=== PATIENT | female | born 1980 | race Caucasian/White ===

== ENCOUNTER → 2019-01-25 14:29 | Outpatient (CLI) | payer OTHER, SELFPAY ==
[2019-01-25 11:18] VITALS: BMI 32.4
== END ==
PROVIDERS: Referring Provider Physician Assistant Medical; Visit Provider Physician Assistant Medical
DX: J02.9 Acute pharyngitis, unspecified (principal)
CPT/HCPCS: 87081

== ENCOUNTER 2021-11-08 16:26 | Outpatient (CLI) | payer OTHER, SELFPAY ==
[2021-11-12 14:15] LABS: HPV APTIMA, High Risk Negative (Negative)
== END 2021-11-08 23:59 | disposition home or self-care (01) ==
LOC: LABSPEC 16:27
PROVIDERS: Referring Provider Nurse Practitioner Women's Health; Visit Provider Nurse Practitioner Women's Health
DX: Z12.4 Encounter for screening for malignant neoplasm of cervix (principal)
CPT/HCPCS: 87624; 88175; G0145

== ENCOUNTER 2021-12-06 08:18 | Outpatient (CLI) | payer OTHER, SELFPAY ==
--- NOTE | 2021-12-06 08:22 | BI_ITS ---
MAMMOGRAPHY - BILATERAL SCREENING REASON FOR EXAM: Female, 41 years old. Routine annual screening examination. PERTINENT HISTORY: Non-contributory. TECHNIQUE: Digital bilateral breast marylu (3D mammographic acquisition) in the CC and MLO projections. 2-D mediolateral oblique (MLO) and craniocaudad (CC) views of both breasts were obtained. CAD: Full Field Digital Mammography with Computer Added Detection was performed. COMPARISON: None. Baseline examination. FINDINGS: Breast Composition: The breasts are extremely dense, which lowers the sensitivity of mammography. There are no dominant masses or suspicious calcifications. No other significant abnormalities are identified. BI/SCRN MAMM (CAD)W/MARYLU BILAT IMPRESSION: Negative screening mammogram. Yearly followup mammogram recommended. (A) ASSESSMENT CATEGORY: BIRADS Category 1: Negative. A letter regarding these results will be sent to the patient by the facility within 30 days. Approximately 10% of breast cancers are not detected by mammography. A normal mammogram should not delay biopsy of a clinically suspicious abnormality. [id number] Electronically Signed: Tevin Vazquez MD at 9:11 EST ,
== END 2021-12-06 23:59 | disposition home or self-care (01) ==
LOC: OPBI 08:20
PROVIDERS: Visit Provider Nurse Practitioner Women's Health
DX: Z12.31 Encounter for screening mammogram for malignant neoplasm of breast (principal)
CPT/HCPCS: 77063; 77067

== ENCOUNTER 2022-10-04 10:08 | Emergency (ER) | payer OTHER, SELFPAY ==
[2022-10-04 10:09] VITALS: BP 132/87; PULSE 62; RESP 14; TEMP 36.4; O2SAT 96; BMI 24.3
--- NOTE | 2022-10-04 11:07 | EDS_ITS ---
HPI History of Present Illness Chief Complaint: Lower Extremity Injury Narrative Narrative: 42-year-old female presenting with right foot pain. She states she broke her foot while she was in [place] on vacation on Monday. She states she was told she need surgery for her Smith fracture within the first 48 hours. This was offered to her and she declined. She states she wanted to come back home first before having surgery. She states he tried to call orthopedics and cannot get follow-up until next week. She states he is not had any narcotic pain medication. Patient denies new injury. She is in a splint. She is ambulatory with crutches. Patient states that while she is sitting or laying down her foot does not hurt very much. It typically hurts at the end of the day after she has been upright for a while. [facility] Medical History (Updated 10/04/22 @ 12:02 by Avelina Jefferson) Foot fracture, right Scabies Home Medications multivitamin 1 tab PO DAILY 11/08/21 [History Last Taken Unknown] Allergy/AdvReac Type Severity Reaction Status Date / Time venom-honey bee Allergy Anaphylaxis Verified 10/04/22 10:11 [bee venom (honey bee)] Family History Grandmother Ovarian cancer Grandfather Lung cancer Mother Hypertension Father Heart disease Social History Smoking Status: Never smoker alcohol intake: current details: occasionally substance use type: does not use caffeine: Yes what type of physical activity do you participate in: other details: crossfit frequency: 3-4 times per week seatbelt use: always do you feel safe at home: Yes additional social history: - Louie ROS ROS ED Constitutional Constitutional ED: Denies chills, fever(s) or sweats Eyes Eyes: Denies blurry vision or change in vision ENT ENT ED: Denies ear pain or sore throat Cardiovascular Cardiovascular: Denies chest pain, palpitations or racing heartbeat Respiratory/Chest Respiratory/Chest: Denies cough, dyspnea or sputum Gastrointestinal Gastrointestinal: Denies abdominal pain, constipation, diarrhea, nausea or vomiting Genitourinary Genitourinary ED: Denies dysuria, hematuria or urinary frequency Musculoskeletal Musculoskeletal: Reports other Details: Right foot pain ; Denies arthralgias, myalgias or neck pain Integumentary Denies abscess, Abrasions or rash Neurologic Neurologic: Denies headache(s), paresthesias or weakness Psychiatric Psychiatric: Denies anxiety, depression, suicidal ideation or suicidal thoughts Endocrine Endocrinology: Denies polydipsia or polyuria EXAM Physical Exam Const Vital Signs: 10/04/22 10:09 10/04/22 12:09 Temperature 97.5 F L Temperature Source Temporal Pulse Rate 62 62 Respiratory Rate 14 15 Blood Pressure 132/87 H 134/77 H Blood Pressure Mean 102 Pulse Ox 96 97 Oxygen Delivery Method Room Air Positive well nourished HEENT Reports moist mucous membranes Eyes PERRL Resp normal respiratory effort Cardio regular rate and regular rhythm Extremity Extremity Narrative: Right foot is in a splint. Brisk cap refill to all 5 toes. MDM MDM MDM Narrative Medical decision making narrative: Patient seen and evaluated on arrival. She declines analgesia. She states currently she is comfortable. Since I do not have an image I will need to Xray her foot. I will talk to podiatry. X-ray of the right foot obtained and shows a displaced base of the fifth metatarsal fracture on the right foot. This is on my interpretation. I did speak with Dr. Terrazas. He recommended follow-up tomorrow in office. Patient is already in a splint. She declines analgesia. Impression: 1. Right fifth metatarsal fracture Lab Data Attestation: I reviewed the patient's lab results. Radiography Diagnostic Testing: Clinical Impression(s) from Imaging Studies Foot X-Ray 10/04/22 11:35 IMPRESSION: 1. Acute mildly displaced fracture at the base of the fifth metatarsal bone Electronically Signed: Johnny Snider MD at 12:34 EST Reading Location ID and State: [address] [place] [address] , Service support , Discharge Plan Triage Chief Complaint: Lower Extremity Injury ED Provider: Jevon Fitch Dx/Rx/DC Orders Instructions: ED Fracture, Foot Prescriptions: No Action multivitamin Tablet 1 tab PO DAILY Primary Care Provider: Care Physician,No Primary Referrals: Clemente Terrazas DPM [Med Staff - Active Staff] - 1 Day Care Physician,No Primary [Primary Care Provider] - Disposition Disposition: Home, Self Care Discharge Date/Time: 10/04/22 12:09
--- NOTE | 2022-10-04 11:35 | RAD_ITS ---
STUDY: X-RAY - RIGHT FOOT CLINICAL: Female, 42 years old. fx to foot last Monday on vacation, pain TECHNIQUE: 3 view(s) of the foot. COMPARISON: None. FINDINGS: An acute horizontal corner fracture is present at the base and lateral side of the fifth metatarsal bone with mild displacement. No additional acute fractures are present. Normal talus, calcaneus, and tarsal bones. Normal visualized subtalar, talonavicular, calcaneocuboid, tarsal and tarsometatarsal articulations. Normal metatarsi. Normal metatarsophalangeal joint of the great toe. Normal tibial and fibular sesamoid bones. Normal interphalangeal joint of the great toe. Normal phalanges of the great toe. Normal second through fifth metatarsophalangeal joints. Normal interphalangeal joints and phalanges of the lesser toes. The soft tissue structures are unremarkable. RAD/Foot min 3 Views IMPRESSION: 1. Acute mildly displaced fracture at the base of the fifth metatarsal bone Electronically Signed: Johnny Snider MD at 12:34 EST ,
[2022-10-04 12:09] VITALS: BP 134/77; PULSE 62; RESP 15; O2SAT 97
== END 2022-10-04 12:09 | disposition home or self-care (01) ==
PROVIDERS: Emergency Provider Student in an Organized Health Care Education/Training Program; Visit Provider Student in an Organized Health Care Education/Training Program
DX: S92.351A Displaced fracture of fifth metatarsal bone, right foot, initial encounter for closed fracture (principal); X58.XXXA Exposure to other specified factors, initial encounter
CPT/HCPCS: 73630; 99282

== ENCOUNTER → 2022-10-07 | Outpatient (CLI) | payer OTHER, SELFPAY ==
[2022-10-07 17:31] LABS: Absolute Lymphocyte Count 2.31 X10^3/uL (0.83-4.51); Absolute Neutrophil Count 2.9 X10^3/uL (2.0-7.7); Basophil# 0.04 X10^3/uL; Basophil% 0.7 % (0-1); Eosinophil# 0.15 X10^3/uL; Eosinophils% 2.6 % (0-5); Hematocrit 41.1 % (37-47); Hemoglobin 14.3 g/dL (12.0-15.0); Lymphocyte # 2.31 X10^3/ul (0.83-4.51); Lymphocyte % 39.8 % (19-41); Mean Corp Hgb Conc 34.8 g/dL (32-36); Mean Corpuscular Hgb 30.4 pg (27.0-32.0); Mean Corpuscular Volume 87.3 fL (81-99); Mean Platelet Vol. 10.8 fl (6.2-12.0); Monocyte# 0.44 X10^3/uL; Monocyte% 7.6 % (0-10); NRBC Flagged by Analyzer 0 % (0-5); Neutrophil # 2.85 X10^3/uL (2.7-7.7); Neutrophil % 49.1 % (47-70); Platelet Count 282 K/mm3 (150-450); RBC Distribution Width CV 11.9 % (11.6-14.6); RBC Distribution Width SD 37.6 fl (35.1-43.9); Red Blood Count 4.71 M/mm3 (4.2-5.4); White Blood Count 5.8 K/mm3 (4.4-11.0)
[2022-10-07 18:10] LABS: ALB/GLOB Ratio 1.3 RATIO (0.9-2.4); AST(SGOT) 8 U/L (15-37); Alanine Aminotransfer ALT/SGPT 22 U/L (13-56); Albumin, Serum 3.9 g/dL (3.2-5.0); Alkaline Phosphatase 42 U/L (45-117); Anion Gap 8 (5-15); BUN 15 mg/dL (7-18); BUN/Creat Ratio 18.6 RATIO (10-20); Chloride 106 mmol/L (98-107); Creatinine, Serum 0.81 mg/dL (0.55-1.02); EST Glomerular Filtration Rate 83 mL/min (>60); Est Glom Filt Rate - Afr Amer 100 mL/min (>60); Glucose 99 mg/dL (74-106); Potassium 3.7 mmol/L (3.5-5.1); Protein, Total 6.9 g/dL (6.4-8.2); Sodium Level 141 mmol/L (136-145)
== END | disposition home or self-care (01) ==
LOC: MFPLAB 16:24
PROVIDERS: Visit Provider Family Medicine
DX: Z01.818 Encounter for other preprocedural examination (principal)
CPT/HCPCS: 36415; 80053; 85025

== ENCOUNTER 2022-10-14 11:16 | Day surgery (SDC) | payer OTHER, SELFPAY ==
[2022-10-14] VITALS (8 sets, daily range): BP systolic 115–131; BP diastolic 65–79; PULSE 43–75; RESP 16–18; TEMP 36.6–37.1; O2SAT 96–100; BMI 27.3
[2022-10-14 12:47] LABS: Internal QC Validated? YES +Cl - CLEAR BKGD; Pregnancy, Urine Negative Negative
[2022-10-14] MEDS: Lactated Ringers 1,000 ML 15 ML IV ×2 (12:48→13:56)
--- NOTE | 2022-10-14 13:20 | RAD_ITS ---
INDICATION: FX EXAMINATION/TECHNIQUE: X-RAY - RIGHT XR Foot 2 Views 5 VIEWS COMPARISON: None. FINDINGS: Postsurgical changes status post open reduction internal fixation of fracture of the fifth metatarsal with indwelling partially threaded screw. Fracture fragments are in anatomic alignment and position . RAD/Foot 2 Views IMPRESSION: . Status post ORIF fifth metatarsal fracture Electronically Signed: Clemente Muro MD at 19:38 EST ,
--- NOTE | 2022-10-14 13:49 | DCINST_ITS ---
Discharge Instructions Diet Discharge Diet: Light diet - advance as tolerated Activity Discharge Activity: May Not Drive, Use Walker and Use Crutches Weight Bearing Status: No weight bearing (No weightbearing right foot.) Keep extremity elevated above heart level: Right Leg (Keep right foot elevated for at least 50 minutes of every hour.) Dressing / Incision Call your doctor if your incision/area has: Continuous Slow Oozing, Increased Redness and Foul Smelling Discharge Call your doctor if you observe: Fever of 101 or Higher, Shortness of breath, Chest pain, Increased palpitations (irregular heartbeat), Calf discomfort and Uncontrolled pain Change Dressing in: do not change dressing Remove Dressing in: do not remove dressing Cleanse incision/area with: Keep Dressing Clean & Dry Follow Up Care Please Follow Up With: Clemente Terrazas DPM When: in 1 week, sooner if needed. Test Results: Test results from this visit will be discussed in further detail at your follow- up appointment, if applicable. Discharge Plan Admission Attending Provider: Clemente Terrazas Primary Care Provider: Care Physician,Sue Primary Discharge Orders/Prescriptions Prescriptions: New Eliquis 2.5 mg tablet 2.5 mg PO Q12H Qty: 20 0RF hydrocodone-acetaminophen 5-325 mg tablet 1 - 2 tab PO Q6H PRN (Reason: pain) 4 Days Qty: 24 0RF No Action multivitamin Tablet 1 tab PO DAILY Referrals / Follow Up: Care Physician,Sue Primary [Primary Care Provider] - Disposition Disposition (needs filled in before D/C Order can be placed): Home, Self Care
--- NOTE | 2022-10-14 13:50 | PCM.OPRPT ---
Report of Operation Date of Procedure: 10/14/22 Pre-Operative Diagnosis: Right 5th metatarsal fracture. Post-Operative Diagnosis: Same Surgery/Procedure Performed:: ORIF right 5th metatarsal fracture Surgeon: Clemente Terrazas layer out plate glass: Stefani Type of Anesthesia: General and Local Specimen's removed: None Estimated Blood Loss (mL): 5mL Description of Procedure: Indications: This is a year old female with right 5th metatarsal base fracture from playing basketball. We discussed the options - nonsurgical vs surgical. She elected to proceed with 5th metatarsal open reduction internal fixation procedure. Reviewed the procedure, possible benefits vs risks, goals, expectations, and estimated healing time. She expressed understanding and agreement. No guarantees were given nor implied. No warranties were given.?She freely signed the consent forms and elected to proceed forward with the procedure. Operative procedure: She was brought back into the operating room and was placed on the operating room table in the supine position. A timeout was performed and the patient was properly identified and the surgical plan was confirmed. The patient did receive 2 g of IV Ancef for antibiotic prophylaxis. The patient received anesthesia per the anesthesia team. A well padded pneumatic tourniquet was applied around the right ankle but was not inflated for this procedure. A total of 10mL of 0.25% Bupivacaine with 1:200,000 epi was given as a local nerve block around the right lateral foot at level of the 5th metatarsal base after the overlying skin was cleansed with 70% Isopropyl alcohol. The right foot was scrubbed, prepped and draped in the usual aseptic fashion. Further attention was directed to the right foot. A linear skin incision was made overlying the 5th metatarsal base at level of the dorsal lateral foot using a 15 blade. Carefule dissection was completed down to the fracture. It was visualized and was noted to have malalignment. The fracture was reduced manually into normal position. A kwire was placed across the fracture and down shaft of the 5th metatarsal. A 4.0mm Arthrex cannulated screw was placed across the fracture to obtain rigid open reduction internal fixation. The kwire was removed. The fracture was in good position and alignment, there was excellent bone to bone contact across the fracture site. The screw had good bite and was very stable. The fracture site was stable and in good position.The site was flushed out with copious amounts of normal saline solution. The subcutaneous tissue was reapproximated using 3-0 Vicryl and the skin was reapproximated using 4-0 Monocryl. As already noted, the tourniquet was not deflated. All toes on the foot had normal temperature gradient and CFT < 2 seconds to all toes. Hemostasis was achieved with no significant bleeding noted.? Also of note all vital structures including all vital neurovascular and soft tissue structures were properly identified, retracted, and protected as necessary during the procedures. Also of noted intra operative fluoroscopy was used as needed to confirm rigid open reduction internal fixation with screw intact and in good position. At the end, a dressing was applied which consisted of steristrips across the incision site after applying Cavilon, then Betadine soaked adaptic, 4x4 gauze, Kerlix, and olu bandage with a well padded below posterior splint with heel offloaded was applied being sure to apply it not too tight. ? The patient tolerated the above operative procedure well at the anesthesia well with no complication. The patient was transported to the recovery room with vital signs stable and in good condition. Post operative orders were placed. Post operative instructions were reviewed and dispensed verbal and written. No weightbearing right foot, keep right foot elevated for at least 50 minutes of every hour, keep dressing clean, dry and intact. Prescription for [place] 5/325mg 1-2 tabs PO q 6 hours prn pain was prescribed. Also Apixaban 2.5mg PO BID to help prevent a blood clot. She is to follow up with me next next week, sooner if needed. Also post op foot xrays (right) were obtained and reviewed in the PACU. Findings show proper alignment of the 5th metatarsal with intact screw. No complications seen. Grafts/Implants Used: 1 x Arthrex cannulated 4.0mm screw Complications None
[2022-10-14] MEDS: Cefazolin 2 GM in 0.9% Normal Saline 100 ML IV (14:00)
--- NOTE | 2022-10-14 15:10 | RAD_ITS ---
INDICATION: post op EXAMINATION/TECHNIQUE: X-RAY - RIGHT XR Foot Min 3 Views 3 VIEWS COMPARISON: None. FINDINGS: SOFT TISSUES: No soft tissue swelling or gas. No radiopaque foreign body. BONES/JOINTS: Postsurgical changes status post open reduction internal fixation of fifth metatarsal fracture with indwelling orthopedic hardware. Fracture fragments in anatomic alignment and position . RAD/Foot min 3 Views IMPRESSION: Status post ORIF fifth metatarsal fracture Electronically Signed: Clemente Muro MD at 19:43 EST ,
== END 2022-10-14 17:23 | disposition home or self-care (01) ==
LOC: SDC 11:17 → AC 11:19
PROVIDERS: Anesthesiology; Visit Provider Podiatrist
PROC: (CPT 28485; principal; 2022-10-14 13:15)
DX: S92.351A Displaced fracture of fifth metatarsal bone, right foot, initial encounter for closed fracture (principal); X58.XXXA Exposure to other specified factors, initial encounter; Y93.67 Activity, basketball
CPT/HCPCS: 28485; 01480; 73620; 73630; 76000; 81025; C1713; J7120; J2405

== ENCOUNTER 2023-01-10 08:30 | Outpatient (RCR) | payer OTHER, SELFPAY ==
--- NOTE | 2022-12-12 09:19 | HP.PTEVAL_ITS ---
Patient's Visit Information JENNIFER CONNOR is a 42 year old F referred to Physical Therapy by Dr. Clemente Terrazas DPM with a diagnosis of 5th Metatarsal Fracture ORIF. Date of Evaluation: 12/12/22 Physical Therapist: Tram Johnson DPT - Visit Plan Frequency: 2x /Week Duration: 4 Weeks Plan: Transition to shoe- focus on LE ROM and strength- ambulation, proprioception and functional mobility. HEP Given IE: Ankle ROM, Gastroc Stretch with Towel, HR/TR, Weight Shift - Subjective Patient reports broke her right 5th metatarsal playing basketball. Dr. Terrazas did surgery Oct 14, 2022- she has been in a cast then transitions to a CAM walker. She is walking at home with a sock but its slow and hard. She has little to no pain. She has pain if she has been on it its more sharp pains then it goes away- right on the incision. Worst: 2/10 Best: 0/10. She is more sedentary now. 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 Goes to the gym daily and plays outside with her kids (11 and almost 9). Goals: get back to moving. Sleep: not disturbed. No N/T in the toes. PMHX/Meds: no changes since surgery. - Objective Posture: FH, RS- can correct but does not maintain. Gait: antalgic- decreased stance on the right LE with poor heel/toe pattern. HR/TR: able with weight shift to the left. SLS: weight shift but does not take hands off wall due to imbalance. Observation: incision healing well no s/s of infection. Edema: none noted. ROM: DF: 10 degrees with over pressure, PF: 50 degrees, Inver: 30 degrees Ever: 20 degrees. Strength: Knee: 4+/5, Ankle: 4+/5 - Balance/Special Test Scores Lower Extremity Functional Score: 42 - Goals Goal 1:: Patient will be I with HEP and progression Goal Time Frame: 4-6 Weeks Goal 2:: Patient will SLS for 30 sec without LOB Goal Time Frame: 4-6 Weeks Goal 3:: Patient will ambulate >300 feet with a normalized gait pattern Goal Time Frame: 4-6 Weeks Goal 4:: Patient will report 80% improvement Goal Time Frame: 4-6 Weeks - Rehabilitation Potential Physical Therapy Diagnosis: Patient presents with hypomobility- she has decreased LE ROM, strength, proprioception, flex and muscular endurance leading to abnormal gait pattern s/p ORIF of the 5th met. Rehabilitation Potential: Good - Anticipated Interventions Patient/Client Instruction: Educate patient on: Benefits of Fitness Program Therapeutic Exercise to Include: Strength training, Endurance training, Balance training, Coordination, Agility training, Body mechanics, Postural training, Flexibilty training, Gait and locomotor training, Neuromotor development, Passive ROM, Active ROM, Dynamic Lumbar Stabilization, Scapular Strength/Stabilization For the Purpose of:: To improve muscle performance and motor function TENS: Yes Cryotherapy (ice pack, ice massage): Yes Thermo therapy (hot pack): Yes Ultrasound (thermal/non thermal): No Thank you for the opportunity to evaluate your patient. For Medicare and Medicare HMO plans, please review the plan of care and approve it. It will need to be FAXED BACK to us at [phone] for Medicare purposes. For Medicare only, by signing this I certify the plan of care. Please let me know if there are questions or concerns regarding this plan of care. Physician Julio epstein: Date:
--- NOTE | 2023-01-10 08:51 | HP.PTDCSUM ---
It has been my pleasure to treat JENNIFER CONNOR referred by Dr. Clemente Terrazas DPM, with the diagnosis of 5th Metatarsal Fracture ORIF for a total of 9 visit(s). Discharge Date: Please see the following information for a summary of their discharge status. Subjective: Patient reports that her foot is doing a lot better. Stairs are easier and just walking is easier. She just wants to be able to get back to the gym and running but MD says wait on that portion. She has intermittent dull ache if she has been on her feet more during the day but nothing major. She feels that her foot is 60-65%. She feels that if she gets into the gym she feels confident that she can continue indep. % Improvement: 65 Objective/Function: Posture: good throughout Gait: no deviation noted in regular shoes HR/TR: able without UE A no weight shift SLS: 10 sec without loss of balance Edema: none noted. ROM: DF: 15 degrees, PF: 60 degrees, Inver: 30 degrees Ever: 20 degrees. Strength: Knee: 5/5, Ankle: 5/5, Stairs: asc/desc 8' recip without HR and no deviation noted. Flex: Gastroc: mild Soleus: mild Goal 1:: Patient will be I with HEP and progression Goal Progress: Goal Met Goal 2:: Patient will SLS for 30 sec without LOB Goal Progress: Goal Met Goal 3:: Patient will ambulate >300 feet with a normalized gait pattern Goal Progress: Goal Met Goal 4:: Patient will report 80% improvement Goal Progress: Progressing Plan: 01/10/23: Discharge to home exercise program- plans to join [employer] through [email or web address]. Transition to shoe- focus on LE ROM and strength- ambulation, proprioception and functional mobility If there are questions or concerns regarding this patient's physical therapy, please feel free to call me at [phone]. Thank you for the referral of this patient. Sincerely, Tram Johnson DPT Balance/Gait/Functional tests - Balance/Special Test Scores Lower Extremity Functional Score: 55
== END 2023-01-10 15:26 | disposition home or self-care (01) ==
LOC: PT 08:30
PROVIDERS: Referring Provider Podiatrist; Visit Provider Podiatrist
DX: Z47.89 Encounter for other orthopedic aftercare (principal)
CPT/HCPCS: 97110; 97161; 97164

== ENCOUNTER 2024-03-21 12:11 | Emergency (ER) | payer OTHER, SELFPAY ==
[2024-03-21 12:11] VITALS: BP 142/90; PULSE 50; RESP 14; TEMP 36.1; O2SAT 98; BMI 29.4
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
[2024-03-21 14:11] VITALS: BP 125/83; PULSE 53; RESP 15; TEMP 36.4; O2SAT 99
== END 2024-03-21 14:17 | disposition home or self-care (01) ==
PROVIDERS: Emergency Provider Emergency Medicine; Visit Provider Emergency Medicine
DX: S16.1XXA Strain of muscle, fascia and tendon at neck level, initial encounter (principal); V43.94XA Unspecified car occupant injured in collision with van in traffic accident, initial encounter
CPT/HCPCS: 70450; 99282

== ENCOUNTER → 2025-07-08 | Outpatient (CLI) | payer OTHER, SELFPAY ==
--- NOTE | 2025-07-08 13:59 | STE_ITS ---
Reason For Study Reason For Study: Chest Pain Stress Results Protocol: Stress Echocardiogram-James Protocol Maximum Predicted HR: 176 bpm Target HR: 150 bpm % Maximum Predicted HR: 96 % DurationHeart Rate Stage (mm:ss) (bpm) BP Comment Baseline 48 110/76Patient denies chest pain Stage 1 3:00 90 120/84Patient denies chest pain Stage 2 3:00 122 130/82Patient denies chest pain Stage 3 3:00 144 136/84Mild dyspnea. Patient denies chest pain. Stage 4 2:00 169 140/90Mild to moderate dyspnea. Patient denies chest pain. Recovery 77 120/82Patient denies chest pain. Stress Duration: 11:00 mm:ss Maximum Stress HR: 169 bpm Baseline Echocardiogram Findings Stress Echo Wall motion Data Resting WM Intermediate WM Stress WM ECHO/Stress Test Echo w/o Contrast Interpretation Summary Exercise stress echocardiogram. 62-xzro-hfr-year-old lady with a history of abnormal EKG and family history of coronary disease. Stress electrocardiogram. The resting EKG demonstrates sinus bradycardia with a rate of 49 bpm resting bl ood pressure is 110/76 mmHg. The patient exercised according to regular James protocol for total duration of 11 minutes completing 2 minutes into stage IV of the James protocol the maximum heart rate attained was 169 bpm which was 96% of max impacted heart rate maximum workload was 13.7 metabolic equivalents. At rest there were no ST or T wave changes noted perdomo ggest ischemia and at peak exercise nonspecific ST changes were noted which did not meet the criteria for ischemia. No clinical angina was noted patient however did experience some mild to moderate dyspnea. The peak blood pressure w as noted to be 140/90 mmHg. This was a normal blood pressure response to exercise. Stress echocardiogram. The resting echocardiogram demonstrated preserved ejecti on fraction of 55 to 60%. At peak exercise there was thickening of all juan reduction of the ventricular cavity size and peaking of ejection fraction of 70%. No wall motion abnormalities were noted. Conclusion: Exercise stress test with no definitive EKG criteria for ischemia at a high wor kload. Good functional Capacity Stress echocardiogram demonstrating no wall motion abnormalities present. Ordering Physician: Troy Andrade Referring Physician: Troy Andrade Performed By: Dori Krueger RDCS, RVT
== END | disposition home or self-care (01) ==
LOC: CVS 13:41
PROVIDERS: PCP Pediatrics; Referring Provider Internal Medicine Cardiovascular Disease; Visit Provider Internal Medicine Cardiovascular Disease
DX: R07.9 Chest pain, unspecified (principal)
CPT/HCPCS: 93017; 93350

== ENCOUNTER → 2025-07-22 | Outpatient (CLI) | payer OTHER, SELFPAY ==
--- NOTE | 2025-07-22 13:50 | BI_ITS ---
EXAM: DIAG MAMM W/CAD, BILAT 07/22/2025 CLINICAL HISTORY: F, Age 45 y/o , SCREEN FOR BREAST CANCER one-week history of left breast lump. TECHNIQUE: Procedure Code: [id number] Modality: MG Procedure: DIAG MAMM W/CAD, BILAT. COMPARISON: Prior exam(s) dated December 06, 2021.. FINDINGS: TISSUE DENSITY: The breasts are extremely dense, which lowers the sensitivity of mammography. Bilateral Breast Mammographic Findings: The palpable lump corresponds to a 4.3 cm x 3.7 cm well-defined nodule in the deep upper lateral aspect of the left breast. Targeted sonographic correlation recommended. No suspicious masses, areas of developing architectural distortion, or suspicious calcifications. There has been no significant interval change. BI/DIAG MAMM W/CAD, BILAT IMPRESSION: The palpable lump corresponds to a 4.3 cm x 3.7 cm well-defined nodule in the d eep upper lateral aspect of the left breast. Targeted sonographic correlation is recommended. OVERALL FINAL ASSESSMENT BI-RADS 0: INCOMPLETE - NEED ADDITIONAL IMAGING EVALUATION. RECOMMENDATION: Ultrasound Recommended Additional Recommendation none A letter with findings and recommendations will be mailed to the patient. Reading Location: [place] [id number]
--- NOTE | 2025-07-22 13:50 | US_ITS ---
PROCEDURE: BREAST LIMITED UNILATERAL 07/22/2025 REASON FOR EXAM: F, Age 45 y/o , BREAST LUMP COMPARISON: Prior mammogram done earlier in the day.. TECHNIQUE: Procedure Code: USBRSTLIMIT Modality: US Procedure: BREAST LIMITED UNILATERAL. Imaging of the left breast was obtained. FINDINGS: There is a 2.9 cm x 2.8 cm 2.5 cm cyst at the 3 o'clock position of the breast at 3 cm from the nipple. Several cysts are also seen adjacent to this. There is a 2.2 cm 2.2 cm 1.8 cm cyst at the 12 o'clock position of the breast at 2 cm from the nipple. There is a 1 cm x 0.9 cm x 0.5 cm cyst at the 10 o'clock position of the breast at 2 cm from the nipple as well as a 7 mm x 6 mm x 6 mm cyst at the 6 o'clock position of the breast at 4 cm from the nipple. US/Breast Limited Unilateral IMPRESSION: The palpable lump corresponds to a dominant 2.9 cm 2.8 cm 2.5 cm cyst at the 3 o'clock position of the breast at 3 cm from the nipple. There are 3 other adjacent cysts as described. BI-RADS 2: BENIGN RECOMMENDATION: Routine annual follow-up in 1 Year Reading Location: [place] [id number]
== END | disposition home or self-care (01) ==
PROVIDERS: PCP Pediatrics; Referring Provider Nurse Practitioner Family; Visit Provider Nurse Practitioner Family
DX: N63.20 Unspecified lump in the left breast, unspecified quadrant (principal)
CPT/HCPCS: 76642; 77062; 77066; G0279

== ENCOUNTER → 2025-08-19 | Outpatient (CLI) | payer OTHER, SELFPAY ==
--- NOTE | 2025-08-19 15:24 | US_ITS ---
PROCEDURE: PELVIC W/ TRANSVAGINAL REASON FOR EXAM: ENLARGED UTERUS TECHNIQUE: Procedure Code: [id number] Modality: US Procedure: PELVIC W/ TRANSVAGINAL COMPARISON: None FINDINGS: LMP: May 16, 2025. Measurements: Uterus: 10.2 cm x 5.2 cm x 4.3 cm with a volume of 121.4 mL Endometrial Thickness: 11 mm. It is hyperechoic. Right Ovary: 2.3 cm x 1.5 cm x 1.5 cm with a volume of 2.6 mL. Left Ovary: 3.4 cm x 3.6 cm x 2 point 7 cm with a volume of 17.6 mL. TRANSABDOMINAL: Uterus: Mildly enlarged uterus. There are multiple small nabothian cysts. Endometrium: The endometrium measures 11 mm. It is hyperechoic. Right ovary: Normal size and echotexture. Left ovary: There is a 2.4 cm 2.2 cm 2.3 cm simple cyst in the left ovary. Other: No large pelvic mass identified. Transvaginal sonography was performed to better visualize the endometrium. TRANSVAGINAL: Uterus: Anteverted. Mildly enlarged. Endometrium: Normal echotexture. Right ovary: Normal size and echotexture. Left ovary: 2.4 cm 2.2 cm 2.3 cm simple cyst in the left ovary. Other adnexal findings: None. Cul-de-sac: No free intraperitoneal fluid identified. Tenderness: No tenderness US/Pelvic w/ Transvaginal IMPRESSION: Mild enlargement of the uterus. 2.4 cm 2.2 cm 2.3 cm left ovarian cyst. Reading Location: [id number]
--- OUTSIDE RECORDS SUMMARY | 2025-08-19 19:29 | XMS RPT_ITS | CCD ---
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 cavity size and peaking of ejection fraction of 70%. No wall motion abnormalities were noted. Conclusion: Exercise stress test with no definitive EKG criteria for ischemia at a high workload. Good functional Capacity Stress echocardiogram demonstrating no wall motion abnormalities present. Ordering Physician: Troy Andrade Referring Physician: Troy Andrade Performed By: Dori Krueger, HARI, RVT 07/08/251856 Date Catarino Acosta MD CC: Dr. Troy Andrade MD; Jannie Duval MD Date Dictated: 07/08/25 1400 Date Transcribed: 07/08/251856 Portfolio Mgr: Signed Normal [facility] Renal function 2000 panelon 06-18-2025 Albumin [Mass/Vol] 4.2 g/dL Normal 3.9-4.9 [facility] Comment on above: Order Comment: Speci men Type: BLOOD SPECIMEN Ordering Facility: [facility] Address: [address] [place] [address] Performed By: #### 2 4362-6 #### [facility] CLIA [id number] [address] [place] [address] [place] Anion gap [Moles/Vol] 13 mmol/L Normal 8-15 [facility] Comment on above: Order Comment: Speci men Type: BLOOD SPECIMEN Ordering Facility: [facility] Address: [address] [place] [address] Performed By: #### 2 4362-6 #### [facility] CLIA [id number] [address] [place] [address] [place] Calcium [Mass/Vol] 9.2 mg/dL Normal 8.5-10.2 [facility] Comment on above: Order Comment: Speci men Type: BLOOD SPECIMEN Ordering Facility: [facility] Address: [address] [place] [address] Performed By: #### 2 4362-6 #### [facility] CLIA [id number] [address] [place] [address] [place] Chloride [Moles/Vol] 102 mmol/L Normal 98-107 [facility] Comment on above: Order Comment: Speci men Type: BLOOD SPECIMEN Ordering Facility: [facility] Address: [address] [place] [address] Performed By: #### 2 4362-6 #### [facility] CLIA [id number] [address] [place] [address] [place] CO2 [Moles/Vol] 23 mmol/L Normal 22-30 [facility] Comment on above: Order Comment: Speci men Type: BLOOD SPECIMEN Ordering Facility: [facility] Address: [address] [place] [address] Performed By: #### 2 4362-6 #### [facility] CLIA [id number] [address] [place] [address] [place] Creatinine [Mass/Vol] 0.77 mg/dL Normal 0.58-0.96 [facility] Comment on above: Order Comment: Speci men Type: BLOOD SPECIMEN Ordering Facility: [facility] Address: [address] [place] [address] Performed By: #### 2 4362-6 #### [facility] CLIA [id number] [address] [place] [address] [place] eGFRcr SerPlBld CKD-EPI 2020 98 mL/min/1.73m??? Normal >=60 [facility] Comment on above: Order Comment: Speci men Type: BLOOD SPECIMEN Ordering Facility: [facility] Address: [address] [place] [address] Result Comment: Melissa mated Glomerular Filtration Rate (eGFR) is calculated using the 2020 CKD-EPI creatinine equation. This equation utilizes serum creatinine, sex, and age as parameters. The creatinine assay has traceable calibration to isotope dilution-mass spectrometry. Refer to KDIGO guidelines for clinical interpretation. In patients with unstable renal function, e.g. those with acute kidney injury, the eGFR may not accurately reflect actual GFR. Performed By: #### 2 4362-6 #### [facility] CLIA [id number] [address] [place] [address] [place] Glucose [Mass/Vol] 62 mg/dL Low 74-99 [facility] Comment on above: Order Comment: Speci men Type: BLOOD SPECIMEN Ordering Facility: [facility] Address: [address] [place] [address] Result Comment: The [place] Diabetes [employer] (ADA) provides guidance for cutoff values for fasting glucose and random glucose. The ADA defines fasting as no caloric intake for at least 8 hours. Fasting plasma glucose results between 100 to 125 mg/dL indicate increased risk for diabetes (prediabetes). Fasting plasma glucose results greater than or equal to 126 mg/dL meet the criteria for diagnosis of diabetes. In the absence of unequivocal hyperglycemia, results should be confirmed by repeat testing. In a patient with classic symptoms of hyperglycemia or hyperglycemic crisis, random plasma glucose results greater than or equal to 200 mg/dL meet the criteria for diagnosis of diabetes. Reference: Standards of Medical Care in Diabetes 2016, [place] [employer]. Diabetes Care. 2016.39(Suppl 1). Performed By: #### 2 4362-6 #### [facility] CLIA [id number] [address] [place] [address] [place] Phosphate [Mass/Vol] 3.6 mg/dL Normal 2.7-4.8 [facility] Comment on above: Order Comment: Speci men Type: BLOOD SPECIMEN Ordering Facility: [facility] Address: [address] [place] [address] Performed By: #### 2 4362-6 #### [facility] CLIA [id number] [address] [place] [address] [place] Potassium [Moles/Vol] 4.4 mmol/L Normal 3.7-5.1 [facility] Comment on above: Order Comment: Speci men Type: BLOOD SPECIMEN Ordering Facility: [facility] Address: [address] [place] [address] Performed By: #### 2 4362-6 #### [facility] CLIA [id number] [address] [place], [place] [address] [place] Sodium [Moles/Vol] 138 mmol/L Normal 136-144 [facility] Comment on above: Order Comment: Speci men Type: BLOOD SPECIMEN Ordering Facility: [facility] Address: [address] [place] [address] Performed By: #### 2 4362-6 #### [facility] CLIA [id number] [address] [place] [address] [place] Urea nitrogen [Mass/Vol] 13 mg/dL Normal 7-21 [facility] Comment on above: Order Comment: Speci men Type: BLOOD SPECIMEN Ordering Facility: [facility] Address: [address] [place] [address] Performed By: #### 2 4362-6 #### [facility] CLIA [id number] [address] [place] [address] [place] 25(OH)D3 [facility] 25-hydroxyvitamin D3 [Mass/Vol] 45.4 ng/mL Normal 31.0-80.0 [facility] Comment on above: Order Comment: Speci men Type: BLOOD SPECIMEN Ordering Facility: [facility] Address: [address] [place] [address] Result Comment: Clas sification of 25 [place] Vitamin D status: Deficiency/Insufficiency: < or = 30 ng/ml. Sufficiency/Optimal Levels: 31-80 ng/mL Toxicity: > 100 ng/mL. Test performed by chemiluminescent immunoassay. Performed By: #### 1 989-3 #### [facility] CLIA [id number] [address] [place], [place] [address] [place] CBC panel Auto (Bld)on 06-13 Erythrocyte distribution width (RBC) [Ratio] 11.5 % 11.5 - 15.0 % [facility] Hematocrit (Bld) [Volume fraction] 39.3 % 36.0 - 46.0 % [facility] Hemoglobin (Bld) [Mass/Vol] 13.8 g/dL 11.5 - 15.5 g/dL [facility] Interpretation and review of laboratory results Normal [facility] MCH (RBC) [Entitic mass] 30.1 pg 26.0 - 34.0 pg [facility] MCHC (RBC) [Mass/Vol] 35.1 g/dL 30.5 - 36.0 g/dL [facility] MCV (RBC) [Entitic vol] 85.8 fL 80.0 - 100.0 fL [facility] Nucleated RBC (Bld) [#/Vol] NINF [facility] Platelet mean volume (Bld) [Entitic vol] 11.2 fL 9.0 - 12.7 fL [facility] Platelets (Bld) [#/Vol] 250 10*3/uL [facility] RBC (Bld) [#/Vol] 4.58 10*6/uL 3.90 - 5.2 0 m/uL [facility] WBC (Bld) [#/Vol] 7.52 10*3/uL [facility] Erythrocyte distribution width (RBC) [Ratio] 11.5 % Normal 11.5-15.0 [facility] Comment on above: Order Comment: Speci men Type: BLOOD SPECIMEN Ordering Facility: [facility] Address: [address] [place] [address] Performed By: #### 5 8410-2 #### [facility] CLIA [id number] [address] [place] [address] [place] Hematocrit (Bld) [Volume fraction] 39.3 % Normal 36.0-46.0 [facility] Comment on above: Order Comment: Speci men Type: BLOOD SPECIMEN Ordering Facility: [facility] Address: [address] [place] [address] Performed By: #### 5 8410-2 #### [facility] CLIA [id number] [address] [place] [address] [place] Hemoglobin (Bld) [Mass/Vol] 13.8 g/dL Normal 11.5-15.5 [facility] Comment on above: Order Comment: Speci men Type: BLOOD SPECIMEN Ordering Facility: [facility] Address: [address] [place] [address] Performed By: #### 5 8410-2 #### [facility] CLIA [id number] [address] [place] [address] [place] MCH (RBC) [Entitic mass] 30.1 pg Normal 26.0-34.0 [facility] Comment on above: Order Comment: Speci men Type: BLOOD SPECIMEN Ordering Facility: [facility] Address: [address] [place] [address] Performed By: #### 5 8410-2 #### [facility] CLIA [id number] [address] [place] [address] [place] MCHC (RBC) [Mass/Vol] 35.1 g/dL Normal 30.5-36.0 [facility] Comment on above: Order Comment: Speci men Type: BLOOD SPECIMEN Ordering Facility: [facility] Address: [address] [place] [address] Performed By: #### 5 8410-2 #### [facility] CLIA [id number] [address] [place] [address] [place] MCV (RBC) [Entitic vol] 85.8 fL Normal 80.0-100.0 [facility] Comment on above: Order Comment: Speci men Type: BLOOD SPECIMEN Ordering Facility: [facility] Address: [address] [place] [address] Performed By: #### 5 8410-2 #### [facility] CLIA [id number] [address] [place] [address] [place] Nucleated RBC (Bld) [#/Vol] 10*3/uL Normal <0.01 [facility] Comment on above: Order Comment: Speci men Type: BLOOD SPECIMEN Ordering Facility: [facility] Address: [address] [place] [address] Performed By: #### 5 8410-2 #### [facility] CLIA [id number] [address] [place], [place] [address] [place] Platelet mean volume (Bld) [Entitic vol] 11.2 fL Normal 9.0-12.7 [facility] Comment on above: Order Comment: Speci men Type: BLOOD SPECIMEN Ordering Facility: [facility] Address: [address] [place] [address] Performed By: #### 5 8410-2 #### [facility] CLIA [id number] [address] [place] [address] [place] Platelets (Bld) [#/Vol] 250 10*3/uL Normal 150-400 [facility] Comment on above: Order Comment: Speci men Type: BLOOD SPECIMEN Ordering Facility: [facility] Address: [address] [place] [address] Performed By: #### 5 8410-2 #### [facility] CLIA [id number] [address] [place] [address] [place] RBC (Bld) [#/Vol] 4.58 10*6/uL Normal 3.90-5.[address] [facility] Comment on above: Order Comment: Speci men Type: BLOOD SPECIMEN Ordering Facility: [facility] Address: [address] [place] [address] Performed By: #### 5 8410-2 #### [facility] CLIA [id number] [address] [place] [address] [place] WBC (Bld) [#/Vol] 7.52 10*3/uL Normal 3.70-11.[address] [facility] Comment on above: Order Comment: Speci men Type: BLOOD SPECIMEN Ordering Facility: [facility] Address: [address] [place] [address] Performed By: #### 5 8410-2 #### [facility] CLIA [id number] [address] [place] [address] [place] CNOVon 06-13-2025 CNOV Office Visit (FAMPWS ) JENNIFER CORDOBA ([id number]) 1980 F Date Time Provider Department 06/13/25 1:40 PM [facility]ANNIE [facility]VAL [employer] [facility] [facility] During your visit today, we recorded the following information about you: Temperature Pulse Respiration Blood pressure 99.2 degrees 92/minute 16/minute 108/74 Weight Height Last Period 76.7 kg 1.67 m 05/06/25 Jannie Duval MD 06/13/2025 6:02 PM Signed Family Medicine OUTPATIENT VISIT June 13, 2025 CC: Annual physical HPI: 45 year old female patient with a history of Antiphospholipid syndrome Grief related to recent of her son Presents for chest pain and establish care. Has been having chest pain since her son four months ago. Saw [facility] and is having an echo. Reportedly the heating and refrigeration inspector obtained an ECG which he said was abnormal in some way (I cannot review ECG). Sounds like he felt this was potentially takotsubo, and next steps he felt was to order Echo, which patient has scheduled. Last time she had chest pain was earlier this week. Pain is overall improving and becoming much less frequent and less severe. It lasted for a few seconds but previously it was a pressure like pain that was persistent and would not resolve and was accompanied by shortness of breath and beng lightheaded. It had been radiating down left arm and into neck. It was at worst 4/10. It was not exertional, but resting did relieve the pain. Not associated with eating. Nothing seemed to bring on the pain. This week has not been short of breath, but previously a few weeks ago she was. It was not exertional. Laying flat was making her short of breath. said she was waking up panicky in the night. No lower extremity edema. No coughing or wheezing Has had persistent nausea since her son . No blood in stool. No abdominal pain. Has been taking antacids. No NSAIDS Follows outside system for mammogram. Follow outside of system for cervical cancer screening. 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 Has been seeing a therapist herself since her son passed but states she has not been seeing them very regularly, but intends to increase frequency. PHQ-9 06/13/2025 PHQ-9 Scores Little interest or pleasure in doing things: Nearly every day Feeling down, depressed, or hopeless: Nearly every day Trouble falling or staying asleep, or sleeping too much Several days Feeling tired or having little energy Several days Poor appetite or overeating Several days Feeling bad about yourself - or that you are a failure or have let yourself or your family down Several days Trouble concentrating on things, such as reading the newspaper or watching television Several days Moving or speaking so slowly that other people could have noticed. Or the opposite - being so fidgety or restless that you have been moving around a lot more than usual Not at all Thoughts that you would be better off , or of hurting yourself in some way Not at all PHQ-9 Score 11 Review of Systems PAIN ASSESSMENT: Negative for pain, history of chronic pain, or current treatment for a chronic pain condition except as above and chronic left knee pain that is longstanding. GENERAL: No weight loss, or fevers HEENT: Negative for frequent or significant headaches RESPIRATORY: Negative for cough, wheezing CARDIOVASCULAR: as above GI: as above : No history of dysuria, frequency, urgency, or change in urine appearance NEURO: No history of headaches, numbness, weakness, or changes to vision or hearing Health maintenance: Hepatitis B Vaccine(1 of 3 - 19+ 3-dose series) Never done Cervical Cancer Screening due on 02/23/2018 Mammogram Screening Never done Allergies: ALLERGIES Allergen Reactions Bee Sting Hives PT DOES NOT HAVE EPIPEN Medications: multivitamin with minerals (HAIR,SKIN AND NAILS PO) Take 1 tablet by mouth once daily. multivitamin (MULTIPLE VITAMINS) tablet Take 1 tablet by mouth once daily. EPINEPHrine (EPIPEN) 0.3 mg/0.3 mL auto-injector Inject 0.3 mL intramuscularly as needed (For bee stings). omeprazole (PRILOSEC) 40 mg capsule Take 1 capsule by mouth once daily. FLUoxetine (PROZAC) 10 mg capsule Take 1 capsule by mouth once daily. Past Medical History: PAST MEDICAL HISTORY Diagnosis Date Blood in stool Hemorrhage of gastrointestinal tract, unspecified Internal hemorrhoids without mention of complication Lupus anticoagulant syndrome (HCC) Pneumonia 2006 Recurrent UTI RECURRENT UTI 1806-2560 Rh negative status during (HCC) 10/24/2013 Social History: SOCIAL HISTORY[1] Family History: Family History Problem Relation Age of Onset Hypertension Mother other (lupus) Mother COPD Maternal Grandfather Arthritis Paternal Grandfather Breast Cancer Paternal Grandmother OVARIAN CANCER Osteoporosis Paternal Grandmother Osteoporosi (more content not included)... Normal [facility] Comprehensive metabolic 2000 panelon 06-13-2025 Albumin [Mass/Vol] 4.5 g/dL Normal 3.9-4.9 [facility] Comment on above: Order Comment: Speci rajwinder Type: BLOOD SPECIMEN Ordering Facility: [facility] Address: [address] [place] [address] Performed By: #### 5 0190-8, TSH, 09688-1, 2275-4 #### [facility] CLIA [id number] [address] [place] [address] [place] ALP [Catalytic activity/Vol] 49 U/L Normal 34-123 [facility] Comment on above: Order Comment: David purdy Type: BLOOD SPECIMEN Ordering Facility: [facility] Address: [address] [place] [address] Performed By: #### 5 0190-8, TSH, 13360-7, 2275-4 #### [facility] CLIA [id number] [address] [place] [address] [place] ALT [Catalytic activity/Vol] 15 U/L Normal 7-38 [facility] Comment on above: Order Comment: Speci men Type: BLOOD SPECIMEN Ordering Facility: [facility] Address: [address] [place] [address] Performed By: #### 5 0190-8, TSHRF, 30914-1, 2275-4 #### [facility] CLIA [id number] [address] [place] [address] [place] Anion gap [Moles/Vol] 12 mmol/L Normal 8-15 [facility] Comment on above: Order Comment: Speci men Type: BLOOD SPECIMEN Ordering Facility: [facility] Address: [address] [place] [address] Performed By: #### 5 0190-8, TSHRF, 85925-0, 4 #### [facility] CLIA [id number] [address] [place] [address] [place] AST [Catalytic activity/Vol] 19 U/L Normal 13-35 [facility] Comment on above: Order Comment: Speci men Type: BLOOD SPECIMEN Ordering Facility: [facility] Address: [address] [place] [address] Performed By: #### 5 0190-8, TSHRF, 49178-9, 4 #### [facility] CLIA [id number] [address] [place] [address] [place] Bilirubin [Mass/Vol] 0.6 mg/dL Normal 0.2-1.3 [facility] Comment on above: Order Comment: Speci men Type: BLOOD SPECIMEN Ordering Facility: [facility] Address: [address] [place] [address] Performed By: #### 5 0190-8, TSHRF, 15699-7, 2276-01 #### [facility] CLIA [id number] [address] [place] [address] [place] Calcium [Mass/Vol] 10.0 mg/dL Normal 8.5-10.2 [facility] Comment on above: Order Comment: Speci men Type: BLOOD SPECIMEN Ordering Facility: [facility] Address: [address] [place] [address] Performed By: #### 5 0190-8, TSHRF, 26588-4, 4 #### [facility] CLIA [id number] [address] [place] [address] [place] Chloride [Moles/Vol] 102 mmol/L Normal 98-107 [facility] Comment on above: Order Comment: Speci men Type: BLOOD SPECIMEN Ordering Facility: [facility] Address: [address] [place] [address] Performed By: #### 5 0190-8, TSHRF, 09685-8, 4 #### [facility] CLIA [id number] [address] [place] [address] [place] CO2 [Moles/Vol] 24 mmol/L Normal 22-30 [facility] Comment on above: Order Comment: Speci men Type: BLOOD SPECIMEN Ordering Facility: [facility] Address: [address] [place] [address] Performed By: #### 5 0190-8, TSHRF, 54525-5, 2276-01 #### [facility] CLIA [id number] [address] [place] [address] [place] Creatinine [Mass/Vol] 1.83 mg/dL High 0.58-0.96 [facility] Comment on above: Order Comment: Speci men Type: BLOOD SPECIMEN Ordering Facility: [facility] Address: [address] [place] [address] Performed By: #### 5 0190-8, TSHRF, 47745-8, 2276-01 #### [facility] CLIA [id number] [address] [place] [address] [place] eGFRcr SerPlBld CKD-EPI 2020 35 mL/min/1.73m??? Low >=60 [facility] Comment on above: Order Comment: Speci men Type: BLOOD SPECIMEN Ordering Facility: [facility] Address: [address] [place] [address] Result Comment: Melissa mated Glomerular Filtration Rate (eGFR) is calculated using the 2020 CKD-EPI creatinine equation. This equation utilizes serum creatinine, sex, and age as parameters. The creatinine assay has traceable calibration to isotope dilution-mass spectrometry. Refer to KDIGO guidelines for clinical interpretation. In patients with unstable renal function, e.g. those with acute kidney injury, the eGFR may not accurately reflect actual GFR. Performed By: #### 5 0190-8, TSH, , 2276-01 #### [facility] CLIA [id number] [address] [place] [address] [place] Glucose [Mass/Vol] 78 mg/dL Normal 74-99 [facility] Comment on above: Order Comment: David purdy Type: BLOOD SPECIMEN Ordering Facility: [facility] Address: [address] [place] [address] Result Comment: The [place] [employer] (ADA) provides guidance for cutoff values for fasting glucose and random glucose. The ADA defines fasting as no caloric intake for at least 8 hours. Fasting plasma glucose results between 100 to 125 mg/dL indicate increased risk for diabetes (prediabetes). Fasting plasma glucose results greater than or equal to 126 mg/dL meet the criteria for diagnosis of diabetes. In the absence of unequivocal hyperglycemia, results should be confirmed by repeat testing. In a patient with classic symptoms of hyperglycemia or hyperglycemic crisis, random plasma glucose results greater than or equal to 200 mg/dL meet the criteria for diagnosis of diabetes. Reference: Standards of Medical Care in Diabetes 2016, [place] [employer]. Diabetes Care. 2016.39(Suppl 1). Performed By: #### 5 0190-8, [facility], , 2276-01 #### [facility] CLIA [id number] [address] [place] [id number] [place] Potassium [Moles/Vol] 4.3 mmol/L Normal 3.7-5.1 [facility] Comment on above: Order Comment: David purdy Type: BLOOD SPECIMEN Ordering Facility: [facility] Address: [address] [place] [address] Performed By: #### 5 0190-8, [facility], , 2276-01 #### [facility] CLIA [id number] [address] [id number] [place] Protein [Mass/Vol] 7.2 g/dL Normal 6.3-8.0 [facility] Comment on above: Order Comment: Speci men Type: BLOOD SPECIMEN Ordering Facility: [facility] Address: [address] [place] [address] Performed By: #### 5 0190-8, [facility], , 2276-01 #### [facility] CLIA [id number] [address] [place] [address] [place] Sodium [Moles/Vol] 138 mmol/L Normal 136-144 [facility] Comment on above: Order Comment: Speci men Type: BLOOD SPECIMEN Ordering Facility: [facility] Address: [address] [place] [address] Performed By: #### 5 0190-8, [facility], , 2276-01 #### [facility] CLIA [id number] [address] [place] [address] [place] Urea nitrogen [Mass/Vol] 12 mg/dL Normal 7-21 [facility] Comment on above: Order Comment: Speci men Type: BLOOD SPECIMEN Ordering Facility: [facility] Address: [address] [place] [address] Performed By: #### 5 0190-8, [facility], , 2276-01 #### [facility] CLIA [id number] [address] [place] [address] [place] Ferritin SerPl-mCncon 2024 Ferritin [Mass/Vol] 27.1 ng/mL Normal 14.7-205.[address] [facility] Comment on above: Order Comment: Speci men Type: BLOOD SPECIMEN Ordering Facility: [facility] Address: [address] [place] [address] Performed By: #### 5 0190-8, [facility], , 2276-01 #### [facility] CLIA [id number] [address] [place], [place] [id number] [place] Iron and Iron binding capaci ty panelon 06-13-2025 Iron [Mass/Vol] 71 ug/dL Normal 41-186 [facility] Comment on above: Order Comment: Speci men Type: BLOOD SPECIMEN Ordering Facility: [facility] Address: [address] [place] [address] Performed By: #### 5 0190-8, TSH[facility], 10961-3, 2276-4 #### [facility] CLIA [id number] [address] [place] [address] [place] Iron binding capacity [Mass/Vol] 299 ug/dL Normal 232-386 [facility] Comment on above: Order Comment: Speci men Type: BLOOD SPECIMEN Ordering Facility: [facility] Address: [address] [place] [address] Performed By: #### 5 0190-8, TSH[facility], 84625-3, 2276-4 #### [facility] CLIA [id number] [address] [place] [address] [place] Iron/TIBC [Molar ratio] 23.7 % Normal 15.0-57.0 [facility] Comment on above: Order Comment: Speci men Type: BLOOD SPECIMEN Ordering Facility: [facility] Address: [address] [place] [address] Performed By: #### 5 0190-8, TSHRF, 84622-2, 2276-4 #### [facility] CLIA [id number] [address] [place] [address] [place] TSH W/REFLEX FT4on 5 TSH Qn 1.650 m[IU]/L Normal 0.270-4.200 [facility] Comment on above: Order Comment: Speci men Type: BLOOD SPECIMEN Ordering Facility: [facility] Address: [address] [place] [address] Result Comment: If t he patient is , TSH reference range varies by gestational period: First Trimester (weeks 9-12): 0.180-2.990 mIU/L Second Trimester: 0.110-3.980 mIU/L Third Trimester: 0.480-4.710 mIU/L Joshua Blackwell et al. A Practical Approach for the Verifications and Determination of Site- and Trimester-Specific Reference Intervals for Thyroid Function tests in . Thyroid, 2019:29:3:412-420. Tylor Ross, et al. 2017 Guidelines of the [place] Thy[employer] Association for the Diagnosis and Management of Thyroid Disease during and the . Thyroid, 2017:27:3:315-389. Performed By: #### 5 0190-8, TSHRF, 56973-8, 2276-4 #### [facility] CLIA [id number] [address] [place] [address] [facility] Cardiology Visit Reporton Cardiology Visit Report [facility] [address] [place] [address] OFFICE VISIT Date of Service: 06/05/25 MR#: [id number] Acct: [id number] Name: JENNIFER WAN Rep #: [id number] : 1980 Provider: Dr. Troy rahman MD Age/Sex: 45/F Location: [facility] Status: Signed HPI HPI History of Present Illness Details: Patient is a very pleasant 45-year-old white female that comes in today for new patient visit for chest pain. Patient reports she developed this chest discomfort that is along the left upper sternal border sometimes radiates toward her left arm. It occurs when she is lying on her left side but it also can occur randomly with activities. It is not really predictable. She is still exercising at the gym but has cut back significantly on her exercise exertion trying not to push it. Importantly the patient recently lost her son to a tragic suicide. Most of the symptoms have started since that tragic event. The patient does have a family history of coronary disease and heart failure starting at about age 60. She is not hypertensive hyperlipidemic diabetic or smoker. She does not know her lipid status. ECG in the office today showed sinus bradycardia at 54 bpm it was relatively low value voltage he could not rule out an old septal infarct. This was read as abnormal. The patient has no prior history of any type of cardiac event she denies any syncope or near syncope she occasionally does get some lightheadedness doing certain types of activities mainly coming from a recumbent to quickly sitting position and doing certain exercises that are quick change of position. She denies any significant lower extremity edema. She denies any significant dyspnea on exertion. Intake Vital Signs 03/21/24 12:11 06/05/25 10:02 Height 5 ft 7 in 5 ft 8 in Weight: 169 lb BMI 25.7 BP 110/74 Blood Pressure Location Lt brachial Position Sitting Respiration 18 Pulse 60 Pulse Source Monitor Pulse Oximetry (%) 96 Oxygen Delivery Method room air Intake Visit Reasons: CP (Self) Concrete Inspector Required: No Accompanied by: Self Is patient in pain?: No Allergies venom-honey bee (bee venom (honey bee)) Allergy (Verified 06/05/25 10:03) Anaphylaxis Medications ???Medication ???Instructions ???Recorded ???Confirmed ???Type multivitamin 1 tab PO QDAY 06/05/25 06/05/25 Hi story Have you fallen in the past year?: No PFSH Medical History Chest pain Pruritus Wears contact lenses Wears glasses Alcohol use Non-smoker History of edema History of dog bite Foot fracture, right Scabies Surgical History History of foot surgery Family History Grandmother Ovarian cancer Grandfather Lung cancer Mother Hypertension Angina at rest Autoimmune disorder Father Heart disease Social History Smoking Status: Never smoker alcohol intake: current details: occasionally substance use type: does not use caffeine: Yes what type of physical activity do you participate in: other details: crossfit frequency: 3-4 times per week seatbelt use: always do you feel safe at home: Yes additional social history: - Louie ROS Const Const: Positive for fatigue; Negative for weakness ENT ENT: Positive for dizziness (intermittent); Negative for balance problems Cardio Chest Pain: Yes Palpitations: Yes Edema: None Muscle aches with walking: None Resp Respiratory: Positive for other (with palpitations); Negative for SOB with activity, SOB at rest or SOB orthopnea SOB lying down GI GI: Negative nausea, vomiting or heartburn Musc Musc: Negative for muscle weakness or balance problems Neuro Neuro: Positive for dizziness (intermittent); Negative for lightheadedness, near syncope, syncope or weakness Endo Endo: Positive for fatigue Cardiology Exam Const Appearance: cooperative, healthy appearing, comfortable, no acute distress and well developed Head Head: normal to inspection Eyes General: appearance normal, both eyes and all related structures Neck Neck: normal visual inspection and no JVD Carotids: Negative bruit Chest Chest inspection: normal inspection of the chest Auscultation: Bilateral: Clear to Auscultation Cardio Rate: regular rate Rhythm: regular rhythm Heart sounds: S1 normal and S2 normal; Negative rub, gallop or murmur GI GI: normal to inspection Neuro General: patient alert and patient oriented x3 Extremities Lower Extremity Edema: None: Bilateral Psych Psychological: normal affect Supplemental Info Supplemental In (more content not included)... Normal [facility] - Chemistry and C hemistry - challengeOrdered By: Dr. Murray on 10-14-2022 HCG ( test) Ql (U) Negative [facility] Comment on above: Very dilute urine sp ecimens, as indicated by a low specificgravity, may not contain national account representative levels of hCG. If is still suspected, a first morning urinespecimen should be collected 48 hours later and tested. Absolute lymphocyte countOrd ered By: Dr. Escobar on 10-07-2022 Lymphocytes Auto (Unsp spec) [#/Vol] 2.31 10*3/uL 0.83-4.51 [facility] Basophil percentageOrdered B y: Dr. Escobar on 10-07-2022 Basophils/100 WBC (Bld) 0.7 % 0-1 [facility] Bilirubin [Mass/Vol] 0.80 mg/dL 0.20-1.00 [facility] Comment on above: For patients on eltr ombopag therapy, use of Dimension [place] TBIL is not recommended. Chloride [Moles/Vol] 106 mmol/L 98-107 [facility] Eosinophils/100 WBC (Bld) 2.6 % 0-5 [facility] Glucose [Mass/Vol] 99 mg/dL 74-106 [facility] Neutrophils (Bld) [#/Vol] 2.9 10*3/uL 2.0-7.7 [facility] Neutrophils/100 WBC (Bld) 49.1 % 47-70 [facility] Potassium [Moles/Vol] 3.7 mmol/L 3.5-5.1 [facility] Protein [Mass/Vol] 6.9 g/dL 6.4-8.2 [facility] Sodium [Moles/Vol] 141 mmol/L 136-145 [facility] WBC (Bld) [#/Vol] 5.8 10*3/uL 4.4-11.0 [facility] Blood erythrocytes count (nu mber/volume)Ordered By: Dr. Escobar on 10-07-2022 RBC (Bld) [#/Vol] 4.71 10*6/uL 4.2-5.4 [facility] Blood hemoglobin measurement (mass/volume)Ordered By: Dr. Escobar on 10-07-2022 Hemoglobin (Bld) [Mass/Vol] 14.3 g/dL 12.0-15.0 [facility] Blood lymphocytes/100 leukoc ytesOrdered By: Dr. Escobar on 10-07-2022 Lymphocytes/100 WBC (Bld) 39.8 % 19-41 [facility] Blood monocytes/100 leukocyt esOrdered By: Dr. Escobar on 10-07-2022 Monocytes/100 WBC (Bld) 7.6 % 0-10 [facility] Blood platelet mean volumeOr dered By: Dr. Escobar on 10-07-2022 Platelet mean volume (Bld) [Entitic vol] 10.8 fL 6.2-12.0 [facility] Determination of erythrocyte mean corpuscular volume (MCV)Ordered By: Dr. Escobar on 10-07-2022 MCV (RBC) [Entitic vol] 87.3 fL 81-99 [facility] Hematocrit Auto (Bld) [Volum e fraction]Ordered By: Dr. Escobar on 10-07-2022 Hematocrit (Bld) [Volume fraction] 41.1 % 37-47 [facility] - Chemistry and C hemistry - challengeOrdered By: Dr. Escobar on 10-07-2022 ALP [Catalytic activity/Vol] 42 U/L 45-117 [facility] ALT [Catalytic activity/Vol] 22 U/L 13-56 [facility] CO2 [Moles/Vol] 27.0 mmol/L 21.0-32.0 [facility] Globulin (S) [Mass/Vol] 3.0 g/dL 2.2-4.2 [facility] Urea nitrogen/Creatinine [Mass ratio] 18.6 mg/mg 10-20 [facility] - Hematology and Cell countsOrdered By: Dr. Escobar on 10-07-2022 Erythrocyte distribution width (RBC) [Entitic vol] 37.6 fL 35.1-43.9 [facility] Erythrocyte distribution width (RBC) [Ratio] 11.9 % 11.6-14.6 [facility] Immature granulocytes/100 WBC (Bld) 0.200 % 0.0-0.9 [facility] Comment on above: IG% - Immature Granu locytes (promyelocytes, myelocytes and metamyelocytes) > 1% indicates that a LEFT SHIFT is Present. MCH (RBC) [Entitic mass] 30.4 pg 27.0-32.0 [facility] Nucleated RBC/100 WBC (Bld) [Ratio] 0 % 0-5 [facility] MCHC Auto (RBC) [Mass/Vol]Or dered By: Dr. Escobar on 10-07-2022 MCHC (RBC) [Mass/Vol] 34.8 g/dL 32-36 [facility] No Panel InformationOrdered By: Dr. Escobar on 10-07-2022 Estimated GFR (MDRD) Amer 100 mL/min >60 [facility] Comment on above: GFR Calc Estimated GFR (MDRD) Non-Af Amer 83 mL/min >60 [facility] Comment on above: Non- GFR Calc Platelets bldOrdered By: Dr. Escobar on 10-07-2022 Platelets (Bld) [#/Vol] 282 10*3/uL 150-450 [facility] Serum or plasma albumin carlos eduardo urement (mass/volume)Ordered By: Dr. Escobar on 10-07-2022 Albumin [Mass/Vol] 3.9 g/dL 3.2-5.0 [facility] Serum or plasma albumin/glob ulin mass ratioOrdered By: Dr. Escobar on 10-07-2022 Albumin/Globulin [Mass ratio] 1.3 {ratio} 0.9-2.4 [facility] Serum or plasma calcium carlos eduardo urement (mass/volume)Ordered By: Dr. Escobar on 10-07-2022 Calcium [Mass/Vol] 9.0 mg/dL 8.5-10.1 [facility] Serum or plasma creatinine m easurement (mass/volume)Ordered By: Dr. Escobar on 10-07-2022 Creatinine [Mass/Vol] 0.81 mg/dL 0.55-1.02 [facility] Comment on above: The validity of the calculated GFR & GFRAA in patients over 70 years has not been determined. Clinical correlation is essential. Serum or plasma urea nitroge n measurement (mass/volume)Ordered By: Dr. Escobar on 10-07-2022 Urea nitrogen [Mass/Vol] 15 mg/dL 7-18 [facility] Thin prep Papanicolaou smear with manual screeningOrdered By: Dr. Escobar on 10-07-2022 Thin prep Papanicolaou smear with manual screening 8 U/L 15-37 [facility] Thin prep Papanicolaou smear with manual screening 8 5-15 [facility] Vital Signs Date Time Vital Sign Value Performing Clinician Facility 07-17-2025 11:07-0400 Body height 172.72 cm No Primary Care Physician [facility] 07-17-2025 11:07-0400 Body mass index (BMI) [Ratio] 26.3 kg/m2 No Primary Care Physician [facility] 07-17-2025 11:07-0400 Body weight 78.47 kg No Primary Care Physician [facility] 07-17-2025 11:07-0400 Diastolic blood pressure 96 mm[Hg] No Primary Care Physician [facility] 07-17-2025 11:07-0400 Systolic blood pressure 142 mm[Hg] No Primary Care Physician [facility] 06-13-2025 13:31-0400 Body height 167 cm Jannie Duval MD Work Phone: [facility] 06-13-2025 13:31-0400 Body mass index (BMI) [Ratio] 27.52 kg/m2 Jannie Duval MD Work Phone: [facility] 06-13-2025 13:31-0400 Body temperature 99.19 [degF] Jannie Duval MD Work Phone: [facility] 06-13-2025 13:31-0400 Body weight 76.75 kg Jannie Duval MD Work Phone: [facility] 06-13-2025 13:31-0400 Diastolic blood pressure 74 mm[Hg] Jannie Duval MD Work Phone: [facility] 06-13-2025 13:31-0400 Heart rate 92 /min Jannie Duval MD Work Phone: [facility] 06-13-2025 13:31-0400 Respiratory rate 16 /min Jannie Duval MD Work Phone: [facility] 06-13-2025 13:31-0400 SaO2% (BldA) [Mass fraction] 98 % Jannie Duval MD Work Phone: [facility] 06-13-2025 13:31-0400 Systolic blood pressure 108 mm[Hg] Jannie Duval MD Work Phone: [facility] 06-05-2025 10:02-0400 Body height 172.72 cm No Primary Care Physician [facility] 06-05-2025 10:02-0400 Body mass index (BMI) [Ratio] 25.7 kg/m2 No Primary Care Physician [facility] 06-05-2025 10:02-0400 Body weight 76.65 kg No Primary Care Physician [facility] 06-05-2025 10:02-0400 Diastolic blood pressure 74 mm[Hg] No Primary Care Physician [facility] 06-05-2025 10:02-0400 Heart rate 60 /min No Primary Care Physician [facility] 06-05-2025 10:02-0400 Respiratory rate 18 /min No Primary Care Physician [facility] 06-05-2025 10:02-0400 SaO2% (BldA) [Mass fraction] 96 % No Primary Care Physician [facility] 06-05-2025 10:02-0400 Systolic blood pressure 110 mm[Hg] No Primary Care Physician [facility] 10-14-2022 17:12-0500 Body temperature 98.7 [degF] [facility] 10-14-2022 17:12-0500 Diastolic blood pressure 69 mm[Hg] [facility] 10-14-2022 17:12-0500 Heart rate 75 /min [facility] 10-14-2022 17:12-0500 Respiratory rate 16 /min [facility] 10-14-2022 17:12-0500 SaO2% (BldA) [Mass fraction] 98 % [facility] 10-14-2022 17:12-0500 Systolic blood pressure 120 mm[Hg] [facility] 10-14-2022 12:49-0500 Body height 170.18 cm [facility] 10-14-2022 12:49-0500 Body mass index (BMI) [Ratio] 27.3 kg/m2 [facility] 10-14-2022 12:49-0500 Body weight 79.37 kg [facility] 10-04-2022 12:09-0500 Diastolic blood pressure 77 mm[Hg] [facility] 10-04-2022 12:09-0500 Heart rate 62 /min [facility] 10-04-2022 12:09-0500 Respiratory rate 15 /min [facility] 10-04-2022 12:09-0500 SaO2% (BldA) [Mass fraction] 97 % [facility] 10-04-2022 12:09-0500 Systolic blood pressure 134 mm[Hg] [facility] 10-04-2022 10:09-0500 Body mass index (BMI) [Ratio] 24.3 kg/m2 [facility] 10-04-2022 10:09-0500 Body temperature 97.5 [degF] [facility] 10-04-2022 10:09-0500 Body weight 72.57 kg [facility] Encounters Encounter Date Encounter Type Care Provider Facility Start: 07-22-2025 End: 07-22-2025 ambulatory Jannie AlvaradoAyannaKaryn Duval Facility:[facility] Start: 07-17-2025 End: 07-17-2025 Patient encounter procedure Edith SNELL -[facility] Work Phone: Start: 07-17-2025 End: 07-17-2025 Patient encounter status Edith Hernandez CARDIOPULMONARY TECHNOLOGIST-C [facility] Start: 07-17-2025 End: 07-17-2025 ambulatory No Primary Care Physician -[facility] Start: 07-10-2025 Non-patient / Non-visit Mary crum CARDIOPULMONARY TECHNOLOGIST-C -[facility] Work Phone: Start: 07-10-2025 ambulatory Mary Goins NP Facili ty:[facility] Start: 07-08-2025 ambulatory Catarino Acosta Facility:[facility] Start: 07-08-2025 Non-patient / Non-visit Dr. Angela REYES -[facility] Start: 07-08-2025 End: 07-08-[address] Troy Andrade MD -[facility] Work Phone: Start: 07-08-2025 End: 07-08-2025 ambulatory Jannie Duval Facility:[facility] Start: 06-18-2025 End: 06-18-2025 ambulatory JANNIE DUVAL Facility:[facility] Start: 06-15-2025 End: 06-15-2025 ambulatory Jannie Duval MD Work Phone: [facility] Comment on above: Labs Start: 06-15-2025 End: 06-15-2025 E-mail encounter from caregiver Jannie Duval MD Work Phone: [facility] Start: 06-13-2025 End: 06-13-2025 ambulatory JANNIE DUVAL Facility:[facility] Start: 06-13-2025 End: 06-13-2025 Office outpatient new 45 minutes Jannie Duval MD Work Phone: [facility] Comment on above: [facility] to [facility] (Primary Dx); Bee sting allergy; Screening for depression; Encounter for screening examination for other mental health and behavioral disorders; Encounter for screening mammogram for breast cancer; Dyspepsia; Depression, unspecified depression type; Antiphospholipid antibody positive; Chest pain, unspecified type Start: 06-13-2025 End: 06-13-2025 ambulatory JANNIE DUVAL Facility:[facility] Start: 06-05-2025 End: 06-05-[address] Troy Andrade MD -[facility] Work Phone: Start: 06-05-2025 End: 06-05-2025 ambulatory No Primary Care Physician -[facility] Start: 05-28-2025 End: 05-29-2025 ambulatory Jannie Duval MD Work Phone: [facility] Start: 05-28-2025 End: 05-29-2025 Patient encounter procedure Jannie Duval MD Work Phone: [facility] Comment on above: Future Appointment; Chest Pain Start: 03-21-2024 End: 03-21-2024 Patient encounter procedure Safia Head APRN.ADVERTISING SALES EXECUTIVE Work Phone: [facility] Comment on above: Headache, unspecifie d headache type (Primary Dx) Start: 2023 End: 2023 ambulatory [facility] Work Phone: Start: 2023 End: 2023 Discharged Recurring [facility]Physical Therapy Start: 10-14-2022 End: 10-14-2022 Admission to same day surgery center [facility] Start: 10-07-2022 End: 10-07-2022 ambulatory [facility] Work Phone: Start: 10-07-2022 End: 10-07-2022 Patient encounter procedure [facility] Start: 10-04-2022 End: 10-04-2022 Emergency department patient visit [facility]Emergency Department Start: 10-24-2013 End: 07-17-2014 Patient requested procedure Safia Head APRN.ADVERTISING SALES EXECUTIVE Work Phone: [facility] Procedures Date Procedure Procedure Detail Performing Clinician Start: 06-13-2025 Adult depression scr eening assessment Jannie Duval MD Work Phone: Start: 10-14-2022 X-ray of both feet Start: 10-14-2022 Open reduction of fr acture of metatarsal bone with internal fixation Start: 10-14-2022 Fluoroscopic guidance Start: 10-14-2022 Radiography of foot Start: 10-04-2022 X-ray of both feet Plan of Treatment Date Care Activity Detail Author Start: 06-13-2026 Anxiety Screening Anxiety Screening [facility] Start: 06-13-2026 Depression Screening Depression Scre ening [facility] Start: 06-13-2026 HPV Vaccine (1 - 3-d ose SCDM series) HPV Vaccine (1 - 3-dose SCDM series) [facility] Comment on above: Postponed from 01/10 (Declined at this time) Start: 06-13-2026 Urine microalbumin profile DTa P,Tdap,Td Vaccine (2 - Td or Tdap) [facility] Comment on above: Postponed from 03/27 (Declined at this time) Start: 03-31-2026 Influenza vaccination Influenza Vacc ine (#1) [facility] Comment on above: Postponed from 06/02 (Declined at this time) Start: 08-15-2025 End: 08-15-2025 Patient encounter procedure 08/15/2025 11:00 AM EST Office Visit [facility] [address], [place] [phone] Jannie Duval MD [address] [place], [place] [phone] 2 month follow up [facility] Comment on above: 2 month follow up Start: 07-22-2025 Bilateral mammography DIAG MAMM W/CA D, BILAT [facility] Start: 07-22-2025 Ultrasonography of breast [place] [facility] Limited Unilateral [facility] Start: 07-22-2025 Patient encounter procedure Registered Clinical -Outpatient Breast Imaging Work Phone: Start: 06-15-2025 End: 09-14-2025 Renal function 2000 panel - Serum or Plasma RENAL FUNCTION PANEL Lab Routine Elevated serum creatinine Expected: 06/15/2025, Expires: 09/14/2025 [facility] Work Phone: Comment on above: Expected: 06/15/2025 , Expires: 09/14/2025 Start: 06-13-2025 End: 09-12-2025 25-hydroxyvitamin D3 [Mass/volume] in Serum or Plasma [facility] Comment on above: Expected: 06/13/2025 , Expires: 09/12/2025 Start: 06-13-2025 End: 09-12-2025 Comprehensive metabolic 2000 panel - Serum or Plasma [facility] Comment on above: Expected: 06/13/2025 , Expires: 09/12/2025 Start: 06-13-2025 End: 09-12-2025 Ferritin [Mass/volume] in Serum or Plasma [facility] Comment on above: Expected: 06/13/2025 , Expires: 09/12/2025 Start: 06-13-2025 End: 09-12-2025 Iron and Iron binding capacity panel - Serum or Plasma [facility] [facility] Comment on above: Expected: 06/13/2025 , Expires: 09/12/2025 Start: 06-13-2025 End: 09-12-2025 TSH W/REFLEX FT4 [facility] Comment on above: Expected: 06/13/2025 , Expires: 09/12/2025 Start: 06-13-2025 End: 06-13-2025 Patient encounter procedure 06/13/2025 1:40 PM EDT Office Visit [facility] [place] [address] [place], [place] [id number] Jannie Duval MD [address] [place], [place] [id number] Establish care-see phone (triage) note (pt with recent loss of son, chest pain & palpitations) [facility] [place] Comment on above: Establish care-see p prince (triage) note (pt with recent loss of son, chest pain & palpitations) Start: 06-05-2025 Evaluation of diagno stic study results [facility] Start: 06-02-2025 Influenza vaccination Influenza Vacc ine (#1) [facility] Start: 06-02-2024 Influenza vaccination Influenz a Vaccine (Season Ended) [facility] Start: 03-27-2024 Urine microalbumin profile DTa P,Tdap,Td Vaccine (2 - Td or Tdap) [facility] Start: 10-02-2023 Behavioral Health Screening Behavioral Health Screening [facility] Start: 09-01-2023 Covid-19 Vaccine ( season) Covid-19 Vaccine ( season) [facility] Start: 10-14-2022 Application of ice c ollar, cap or bag [facility] Start: 10-14-2022 Elevation of foot of bed [facility] Start: 10-14-2022 Catheterization of vein [facility] Start: 10-14-2022 Neurovascular assessment [facility] Start: 10-14-2022 Patient discharge [facility] Start: 10-14-2022 Procedure discontinued [facility] Start: 10-14-2022 Vital signs measurements [facility] Start: 10-14-2022 [facility] Start: 10-14-2022 Anes open proc bones lower leg/ankle/foot nos ANESTH LOWER LEG BONE SURG [facility] Start: 10-14-2022 Open treatment metat arsal fracture each TREAT METATARSAL FRACTURE [facility] Start: 2021 Screening for malign ant neoplasm of breast Mammogram Screening [facility] Start: 02-23-2018 Screening for malign ant neoplasm of cervix Cervical Cancer Screening [facility] Start: 02-24-2016 Screening for malign ant neoplasm of cervix Cervical Cancer Screening [facility] Start: 01-11-2008 HPV Vaccine (1 - 3-d ose SCDM series) HPV Vaccine (1 - 3-dose SCDM series) [facility] Start: 01-11-2000 Hepatitis B Vaccine (1 of 3 - 19+ 3-dose series) Hepatitis B Vaccine (1 of 3 - 19+ 3-dose series) [facility] Start: 1999 Anxiety Screening Anxiety Screening [facility] Start: 1999 Depression Screening Depression Scre ening [facility] Helicobacter pylori Ag [Presence] in Stool by Immunoassay HELICOBACTER PYLORI ANTIGEN BY EIA, STOOL Microbiology Routine Dyspepsia Ordered: 06/13/2025 [facility] Work Phone: Comment on above: Ordered: 06/13/2025 Lipid 1996 panel - S jesse or Plasma [facility] Patient Education ED Fracture, Foot [facility] Work Phone: Patient referral [facility] Work Phone: Stress echocardiography [facility] Immunizations Immunization Date Immunization Notes Care Provider Ashlee tamayo 03-27-2014 RHO(D) immune globul in- IV or IM Safia Head APRN.ADVERTISING SALES EXECUTIVE Work Phone: [facility] 03-27-2014 tetanus toxoid, redu ruby diphtheria toxoid, and acellular pertussis vaccine, adsorbed Safia Head RADIO PRODUCER.ADVERTISING SALES EXECUTIVE Work Phone: [facility] 09-12-2011 RHO(D) immune globul in- IV or IM Safia Head RADIO PRODUCER.ADVERTISING SALES EXECUTIVE Work Phone: [facility] Payers Date Payer Category Payer Self-pay [id number] 2021 Private Health Insurance [id number] 2021 Private Health Insurance [id number] Unknown [id number] Unknown [id number] [id number] Unknown [id number] [id number] Unknown [id number] [id number] [id number] Unknown [id number] [id number] Unknown [id number] [id number] Unknown [id number] [id number] Social History Date Type Detail Facility Start: 10-11-2022 End: 10-11-2022 Tobacco smoking status NHIS Unknown if ever smoked [facility] Start: 1980 Sex Assigned At Female [facility] Start: 03-21-2024 Tobacco smoking stat us NHIS Never smoked tobacco [facility] Start: 12-22-2019 End: 06-13-2025 Alcohol intake Current drinker of alcohol (finding) [facility] Start: 12-22-2019 End: 06-13-2025 History of Social function [facility] Start: 12-22-2019 End: 06-13-2025 Tobacco use panel [facility] Start: 09-02-2012 National Score (1-100), lower number is lower risk Not on file [facility] Start: 10-24-2013 Alcohol Comment Rarely,NOT WHI LE [facility] Start: 1980 Sex Assigned At Not on file C [facility] How often to you hav e a drink containing alcohol? Monthly or less [facility] NEGATED: Highlighted row [facility] Medical Equipment Procedure Code Equipment Code Equipment Origin al Text Equipment Identifier Dates ORIF, fracture, metatarsal bone 4.0 MM QUICKFIX CANNULATED SCREW FDA Start: 10-14-2022 ORIF, fracture, metatarsal bone 4.0 MM QUICKFIX CANNULATED SCREW FDA Start: 10-14-2022 ORIF, fracture, metatarsal bone 4.0 MM QUICKFIX CANNULATED SCREW FDA Start: 10-14-2022 Goals Date Patient Goal Desired Activity /State Functional Status Date Assessment Result Facility 10-14-2022 Functional status Ambulates [facility] Work Phone: 07-17-2014 Are you deaf, or do you have serious difficulty hearing No 07/17/2014 9:29 AM Jessa Harrington Ma [facility] Work Phone: 07-17-2014 Are you blind, or do you have serious difficulty seeing, even when wearing glasses No 07/17/2014 9:29 AM Jessa Harrington Ma No [facility] 07-17-2014 Do you have serious difficulty walking or climbing stairs No 07/17/2014 9:29 AM Jessa Harrington Ma No [facility] 07-17-2014 Do you have difficul ty dressing or bathing No 07/17/2014 9:29 AM Jessa Harrington Ma [facility] 07-17-2014 Because of a physica l, mental, or emotional condition, do you have difficulty doing errands alone such as visiting a physician's office or shopping No 07/17/2014 9:29 AM EDT Jessa Ellis Ma [facility] Mental Status Date Assessment Result Facility 10-14-2022 Cognitive function Voice/Name;Light Pain [facility] Work Phone: 07-17-2014 Because of a physica l, mental, or emotional condition, do you have serious difficulty concentrating, remembering, or making decisions No 07/17/2014 9:29 AM EDT Jesas Ellis Ma [facility] Clinical Notes 2023 to 07-17-2025 Telephone Encounter - Jannie Duval MD - 06/15/2025 5:01 PM EDTTelephone Encounter - Jannie Duval MD - 06/15/2025 5:01 PM EDTPatient Jannie Zaidi MD - 06/13/2025 1:37 PM EDT Note Date & Type Note Facility 07-17-2025 Progress note [facility] 06-17-2025 Note Patient Outreach ([facility]) JENNIFER CORDOBA ([id number]) 1980 F Date Time Provider Department 06/17/25 JANNIE DUVAL [facility] During your visit today, we recorded the following information about you: Allergies As of Date: 06/17/2025 Noted Allergy Reaction BEE STING 07/18/2011 4 - Hives Comments: PT DOES NOT HAVE EPIPEN Date Reviewed: 06/13/2025 Reviewed by: Daysi Corey LPN - Fully Assessed Visit Diagnosis:Encounter for screening mammogram for breast cancer [Z12.31] Order(s):OK SCREENING W MARYLU [[id number]] Order #: [id number] FUTURE Prescriptions as of 07/18/2025 - multivitamin with minerals (HAIR,SKIN AND NAILS PO) Take 1 tablet by mouth once daily. - EPINEPHrine (EPIPEN) 0.3 mg/0.3 mL auto-injector Inject 0.3 mL intramuscularly as needed (For bee stings). - omeprazole (PRILOSEC) 40 mg capsule Take 1 capsule by mouth once daily. - FLUoxetine (PROZAC) 10 mg capsule Take 1 capsule by mouth once daily. - multivitamin (MULTIPLE VITAMINS) tablet Take 1 tablet by mouth once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 deviation noted in regular shoes HR/TR: able without UE A no weight shift SLS: 10 sec without lossof balance Edema: none noted. ROM: DF: 15 degrees, PF: 60 degrees, Inver: 30 degrees Ever: 20 degrees. Strength: Knee: 5/5, Ankle: 5/5, Stairs: asc/desc 8' recip without HR and no deviation noted. Flex: Gastroc: mild Soleus: mild Goal 1:: Patient will be I with HEP and progression Goal Progress: Goal Met Goal 2:: Patient will SLS for 30 sec without LOB Goal Progress: Goal Met Goal 3:: Patient will ambulate >300 feet with a normalized gait pattern Goal Progress: Goal Met Goal 4:: Patient will report 80% improvement Goal Progress: Progressing Plan: 01/10/23: Discharge to home exercise program- plans to join [employer] through [employer]. Transition to shoe- focus on LE ROM and strength- ambulation, proprioception and functional mobility If there are questions or concerns regarding this patient's physical therapy, please feel free to call me at [phone]. Thank you for the referral of thispatient. Sincerely, Tram Johnson, DPT Balance/Gait/Functional tests - Balance/Special Test Scores Lower Extremity Functional Score: 55 <Electronically signed by Tram Johnson DPT> 01/10/23 0851 CC: SANDRA Terrazas; No Primary Care Physician ~ ELR Signed [facility] Work Phone: Evaluation noteNo assessment information available [facility] Work Phone: Evaluation note* Diagnosis Headache, unspecified headache type- Primary [facility] Diagnosis Onset Date Resolution Status Admit Date Chest pain acute June 05, 2025 10:00am [facility] Work Phone: Evaluation note* Diagnosis Encounter to establish care- Primary Other reasons for seeking consultation 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 arachnids Screening for depression Encounter for screening examination for other mental health and behavioral disorders Encounter for screening mammogram for breast cancer Dyspepsia Dyspepsia and other specified disorders of function of stomach Depression, unspecified depression type Antiphospholipid antibody positive Other and unspecified nonspecific immunological findings Chest pain, unspecified type [facility] Elevated serum creatinine- Primary Other nonspecific findings on examination of blood [facility] Additional Instructions [facility] Work Phone: Progress note Author Edith Hernandez [facility] Note Date/Time July 17, 2025 1 1:43am 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: No Is patient in pain?: No Allergies venom-honey bee (bee venom (honey bee)) Allergy (Verified 07/17/25 11:08) Anaphylaxis Medications ?Medication ?Instructions ?Recorded ?Confirmed ?Type multivitamin 1 tab PO QDAY 06/05/2507/17 History Post menopausal: No Patient : No : No PFSH Medical History Chest pain Pruritus Wears contact lenses Wears glasses Alcohol use Non-smoker History of edema History of dog bite Foot fracture, right Scabies Surgical History History of foot surgery Family History Grandmother Ovarian cancer Grandfather Lung cancer Mother Hypertension Angina at rest Autoimmune disorder Father Heart disease Social History Smoking Status: Never smoker alcohol intake: current details: occasionally substance use type: does not use caffeine: Yes what type of physical activity do you participate in: other details: crossfit frequency: 3-4 times per week seatbelt use: always do you feel safe at home: Yes additional social history: - Louie History 5 Elective abortions Hx Para 2 Spontaneous abortions 3 Hx # Term Pregnancies Ectopic pregnancies Hx # Pregnancies Multiple births # of living children Past Pregnancies Del. Date Name GA/Weeks Outcome Route Bth Weight Infant Gen Labor Lgth Anesthesia Del Locatn Provider FOB Unknown Max Unknown Wesley HPI Encounter for routine gynecological examination Details: JENNIFER CONNOR is a 45 year old who presents for annual exam. She reports no issues or concerns today other than she has been having some perimenopausal symptoms. Skipping periods; differences in the flow of her mensesas well. She is waking up with hot flashes as well. with vasectomy. Has not gone a full year without a menses. Last PAP: 2021; normal. HPV neg History of abnormal PAP: no Last mammogram: 2021; normal History of abnormal mammogram: no Colon cancer screening: age 46 Other preventative health care screenings: Dr. Chin--[facility]. Female Reproductive History Last Menstrual Period: 05/15/25 Cycle Length: 21-35 Questions: metrorrhagia: No, sexually active: Yes, dyspareunia: No and PCB: No ROS Const Constitutional: Denies chills, fatigue, fever(s), headache(s) or weight loss Eyes Eyes: Denies change in vision ENT ENT: Denies dizziness Cardio Card: Denies chest pain at rest or palpitations Resp Resp: Denies cough or dyspnea GI GI: Denies abdominal pain, constipation or nausea : Denies difficulty voiding, dysuria, hematuria, nipple discharge, pelvic pain, prolapse symptoms, urinary incontinence, vaginal discharge, vaginal dryness, vaginal odor or vaginal pruritus Skin Skin/Breast: Denies alopecia, rash, breast mass, breast pain, breast skin changes or nipple discharge Neuro Neuro: Denies dizziness Psych Psych: Reports depression; Denies anxiety, homicidal ideation or suicidal ideation Endo Endo: Denies cold intolerance, excessive sweating or heat intolerance Exam Const General: cooperative, healthy appearing, comfortable, no acute distress, well groomed and well hydrated Nutritional Appearance: well nourished Orientation: alert, awake and oriented x3 HENMT Head: normal to inspection and normocephalic Ears: hearing grossly normal bilaterally and external ears normal Nose: external nose normal Face and sinus: normal facial exam Eyes General: appearance normal, both eyes and all related structures Neck Neck: normal visual inspection, full ROM and no lymphadenopathy Thyroid: thyroid normal Chest Chest palpation & inspection: normal inspection of the chest Breast inspection: normal inspection of the breasts and normal inspection of theaxillae Breast palpation: normal palpation of the axillae, no axillary lymphadenopathy and abnormal palpation of the breast (Left lateral quarter sized; firm lump. ) Resp Effort & Inspection: normal respiratory effort, able to speak in complete sentences and symmetric chest movement GI Inspection: normal to inspection Palpation: soft and no hepatosplenomegaly General: bladder normal to palpation External Female Exam: normal external appearance and normal appearance of the urethra Urethra: normal appearance of the urethra Speculum Exam - Vagina: normal appearance of the vagina, normal vaginal discharge, no lesions and nontender Speculum Exam - Cervix: normal appearance of the cervix, no lesions and no masses Bimanual Exam- Vagina & Uterus: normal bimanual exam, bladder normal to palpation, normal palpation, non-tender and enlarged (firm) Bimanual Exam- Adnexa, other: normal adnexae, no masses, normal and non-tender Pelvic Support: normal Skin General: no rashes or lesions noted Neuro General: patient alert, patient awake, patient oriented x3 and moves all extremities Psych Appearance: grossly normal Mental Status: mental status grossly normal Affect: normal affect Speech and Movement: speech and movement normal Attitude: cooperative Coding Level of Care Code New Pt Off vis,new,prev 40-64yrs Patient Type New Diagnoses Encounter for routine gynecological examination Z01.419 Enlarged uterus N85.2 Breast lump N63.0 Irregular menses N92.6 Assessment and Plan Assessment and Plan (1) Encounter for routine gynecological examination: Plan: Breast and pelvic exam complete. PAP due: UTD Mammogram due: See number 2 Advised self breast exams monthly. Contraception: vasectomy Advised incorporating healthy dietary choices such as increase in lean meats, fruits/vegetables, less processed food/sat fat/trans fats. Increase exercise to 30 minutes per day/5 days a week. This can include both weight bearing exercisesand/or brisk walking. Follow up with PCP for further preventative health screenings. 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 Call office sooner with questions or concerns. (2) Enlarged uterus: Status: Acute Plan: further eval with ultrasound; final plan with results. (3) Breast lump: Status: Acute Plan: further eval with diagnostic mammogram and ultrasound. Final plan with results. (4) Irregular menses: Status: Acute Plan: perimenopause consideration; ultrasound ordered already--will correlate with these findings for final plan. Orders: Orders DIAG MAMM W/CAD, BILAT Today N63.0 - Unspecified lump in unspecified breast Breast Limited Unilateral Today N63.0 - Unspecified lump in unspecified breast Pelvic w/ Transvaginal Today N85.2 - Hypertrophy of uterus 07/17/25 1218 <Electronically signed by Edith FAITHC> Date _ Edith FAITHC Cosigner Signature: Date (if applicable) CC: ~ [facility] Work Phone: Reason for referral (narrative)No reason for referral information availableFairchild Medical Center Work Phone: Chief Complaint and Reason for Visit Chief Complaint RIGHT FOOT FX ORIF RT 5TH METATARSAL FX Chief Complaint RIGHT FOOT FX ORIF RT 5TH METATARSAL FX RT FOOT/RX HERE Chief Complaint Admit Date CP (Self) June 05, 2025 10:00am Reason for Visit Admit Date Chest pain June 05, 2025 10:00am Chief Complaint Admit Date CP (Self) June 05, 2025 10:00am CP July 08, 2025 1: 40pm Amb Documentation July 10, 2025 7: 51am 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) July 17, 2025 1 1:05am LEFT BREAST MASS July 22, 2025 1 :48pm Reason for Visit Admit Date Chest pain June 05, 2025 10:00am Breast lump July 17, 2025 1 1:05am Enlarged uterus July 17, 2025 1 1:05am Irregular menses July 17, 2025 1 1:05am Encounter for routine gynecological exam ination July 17, 2025 11:05am Family History No Family History Records Found Relationship Condition Age at Onset Recorded Date/T jacki grandmother Malignant neoplasm of ovary Unknown grandfather Malignant neoplasm of lung Unknown mother Hypertension Unknown father Cardiac disease Unknown Relationship Condition Age at Onset Recorded Date/T jacki grandmother Malignant neoplasm of ovary Unknown grandfather Malignant neoplasm of lung Unknown mother Hypertension Unknown Angina at rest Unknown Autoimmune disorder Unknown father Cardiac disease Unknown Advance Directives No Advanced Directives Records Found Advance Directive Response Recorded Date/ Time Living Will No October 11 1:53pm Power of Community Health Navigator No October 11, 2022 1:53pm Advance Directive Response Recorded Date/ Time Living Will No October 11 2:53pm Power of Community Health Navigator No October 11, 2022 2:53pm Summary Purpose Additional Source Comments Care Teams (unrecognized sec tion and content) Team Status: Active Member Role Status Dates No Primary Care Physician Family Provider Active No Primary Care Physician Primary Care Provider Active Team Status: Inactive Member Role Status Dates No Primary Care Physician Primary Care Provider Active Dr. Jevon Fitch DO Attending Provider, Emergency Provider Active Team Status: Inactive Member Role Status Dates No Primary Care Physician Primary Care Provider Active Dr. Clemente Terrazas DPM Attending Provider Active Team Status: Inactive Member Role Status Dates No Primary Care Physician Primary Care Provider Active Dr. Alysha Escobar MD Attending Provider Active Team Status: Inactive Member Role Status Dates No Primary Care Physician Primary Care Provider Active Dr. Clemente Terrazas DPM Attending Provider, Referrin g Provider Active Search Engine Optimizer Relationship Specialty Start Date End Date Madi Powell MD [address] [place] [id number] PCP - General Family Medicine 11/04/13 Team Status: Active Member Role/Relationship Status Dates No Primary Care Physician Family Provider Active Dr. Jannie Duval MD Primary Care Provider Activ e Team Status: Inactive Member Role/Relationship Status Dates No Primary Care Physician Referring Provider Active Start: June 05, 2025 End: June 05, 2025 Dr. Troy Andrade MD Attending Provider Active Start: June 05, 2025 End: June 05, 2025 Dr. Jannie Duval MD Primary Care Provider Activ e Start: June 05, 2025 End: June 05, 2025 Search Engine Optimizer Relationship Specialty Start Date End Date Jannie Duval MD [address] [place], [place] [id number] PCP - General Internal Medicine 06/13/25 Search Engine Optimizer Relationship Specialty Start Date End Date Jannie Duval MD [address] [place], [place] [address] PCP - General Internal Medicine 06/13/25 Team Status: Active Member Role/Relationship Status Dates Dr. Jannie Duval MD Primary care physician Acti ve Team Status: Inactive Member Role/Relationship Status Dates No Primary Care Physician Referring Provider Active Start: June 05, 2025 End: June 05, 2025 Dr. Troy Andrade MD Attending physician Active Start: June 05, 2025 End: June 05, 2025 Dr. Jannie Duval MD Primary care physician Acti ve Start: June 05, 2025 End: June 05, 2025 Team Status: Inactive Member Role/Relationship Status Dates Dr. Jannie Duval MD Primary care physician Acti ve Start: July 08, 2025 End: July 08, 2025 Dr. Troy Andrade MD Attending physician Active Start: July 08, 2025 End: July 08, 2025 Dr. Troy Andrade MD Referring Provider Active Start: July 08, 2025 End: July 08, 2025 Team Status: Active Member Role/Relationship Status Dates Dr. Jannie Duval MD Primary care physician Acti ve Start: July 08, 2025 Dr. Catarino Acosta MD Attending physician Active Start: July 08, 2025 Team Status: Active Member Role/Relationship Status Dates Dr. Jannie Duval MD Primary care physician Acti ve Start: July 10, 2025 Mary Goins CARDIOPULMONARY TECHNOLOGIST, CARDIOPULMONARY TECHNOLOGIST-C Attending physician Active Start: July 10, 2025 Team Status: Inactive Member Role/Relationship Status Dates No Primary Care Physician Referring Provider Active Start: July 17, 2025 End: July 17, 2025 ALIS Alexander Attending physician Active Start: July 17, 2025 End: July 17, 2025 Dr. Jannie Duval MD Primary care physician Acti ve Start: July 17, 2025 End: July 17, 2025 Team Status: Active Member Role/Relationship Status Dates Dr. Jannie Duval MD Primary care physician Acti ve Start: July 22, 2025 ALIS Alexander Attending physician Active Start: July 22, 2025 ALIS Alexander Referring Provider Active Start: July 22, 2025 Source Comments (unrecognize d section and content) In the event this informatio n is protected by the Federal Confidentiality of Alcohol and Drug Abuse Patient Records regulations: The Federal rules restrict any use of the information to criminally investigate or prosecute any alcohol or drug abuse patient.[facility] the event this information is protected by the Federal Confidentiality of Alcohol and Drug Abuse Patient Records regulations: The Federal rules restrict any use of the information to criminally investigate or prosecute any alcohol or drug abuse patient.[facility] the event this information is protected by the Federal Confidentiality of Alcohol and Drug Abuse Patient Records regulations: The Federal rules restrict any use of the information to criminally investigate or prosecute any alcohol or drug abuse patient.[facility] the event this information is protected by the Federal Confidentiality of Alcohol and Drug Abuse Patient Records regulations: The Federal rules restrict any use of the information to criminally investigate or prosecute any alcohol or drug abuse patient.[facility] Reason for Visit (unrecogniz ed section and content) Reason Comments Future Appointment Chest Pain Reason Comments Establish Care Goals (unrecognized section and content) Goals may be documented in a n alternate sectionGoals may be documented in an alternate section INFORMATION SOURCE (unrecogn ized section and content) DATE CREATED AUTHOR 07/19/2025 [facility] DATE CREATED AUTHOR AUTHOR'S ORGANEMMA ATION 07/31/2025 [facility] FOR RECORDS PERTAINING TO PATIENTS WHO ARE OR HAVE BEEN ENROLLED IN A CHEMICAL DEPENDENCY/SUBSTANCEABUSE PROGRAM, SOME INFORMATION MAY BE OMITTED. This clinical summary was aggregated from multiple sources. Caution should be exercised in using it in the provision of clinical care. This summary normalizes information from multiple sources, and as a consequence, information in this document may materially change the coding, format and clinical context of patient data. In addition, data may be omitted in some cases. CLINICAL DECISIONS SHOULD BE BASED ON THE PRIMARY CLINICAL RECORDS. [employer] [facility]. provides no warranty or guarantee of the accuracy or completeness of information in this document.
== END | disposition home or self-care (01) ==
LOC: US 15:21
PROVIDERS: PCP Pediatrics; Referring Provider Nurse Practitioner Family; Visit Provider Nurse Practitioner Family
DX: N85.2 Hypertrophy of uterus (principal)
CPT/HCPCS: 76830; 76856